=== PATIENT | male | born 2000 | race Hispanic/Latino ===

== ENCOUNTER 2019-04-01 20:16 | Emergency (ER) | payer BC ==
[~2019-04-01] VITALS: Ht 175.3 cm; Wt 83.9 kg
--- OUTSIDE RECORDS SUMMARY | ~2019-04-01 | XMS | Encounter Summary ---
Demographics + + + | Address | [address] | | | [place] [address] | + + + | Home Phone | | + + + | Preferred Language | Unknown | + + + | Marital Status | Single | + + + | Jehovah'S Witness Affiliation | 1041 | + + + | Race | Unknown | + + + | Ethnic Group | Unknown | + + + Author + + + | Author | [facility] | | | and [place]avier[place] | + + + | Organization | [facility] | | | and [place] | + + + | Address | Unknown | + + + | Phone | Unavailable | + + + Support + + + + + | Name | Relationship | Address | Phone | + + + + + | Martir Hurtado | ECON | [address] | | | | | [address], [place] | | | | | [address] | | + + + + + Care Team Providers + +------+ + | Care Journeyman Pressman Name | Role | Phone | + +------+ + | No, Physician | PCP | Unavailable | + +------+ + Reason for Visit Auth/Cert (Routine) +--------+--------+ + + + + | Status | Reason | Specialty | Diagnoses / | Referred By | Referred To | | | | | Procedures | Contact | Contact | +--------+--------+ + + + + | | | | Diagnoses | | | | | | | Other tear | | | | | | | of lateral | | | | | | | meniscus, | | | | | | | current | | | | | | | injury, | | | | | | | right knee, | | | | | | | initial | | | | | | | encounter | | | | | | | Procedures | | | | | | | [facility] ARTHRS | | | | | | | KNE SURG | | | | | | | W/MENISCECTO | | | | | | | MY MED/LAT | | | | | | | W/SHVG LA | | | | | | | KNEE | | | | | | | SCOPE,MED OR | | | | | | | LAT MENIS | | | | | | | REPAIR | | | +--------+--------+ + + + + Encounter Details +--------+---------+ + + + | Date | Type | Department | Care Team | Description | +--------+---------+ + + + | 09/08/ | Surgery | [facility] | Fabrizio Pina, | ARTHROSCOPY KNEE | | 2018 | | HOSPITAL OR INTRA OP | DO [address] , | with Lateral | | | | [address] | [place], [place] | Meniscus Repair vs | | | | [place], [place] | [address] | Partial Resection | | | | [id number] | [phone] | | | | | [phone] | | | +--------+---------+ + + + Social History + +-------+ +--------+------+ | Tobacco Use | Types | Packs/Day | Years | Date | | | | | Used | | + +-------+ +--------+------+ | Never Smoker | | | | | + +-------+ +--------+------+ + +---+---+---+ | Smokeless Tobacco: | | | | | Never Used | | | | + +---+---+---+ + + +---------+ + | Alcohol Use | Drinks/Week | oz/Week | Comments | + + +---------+ + | No | | | | + + +---------+ + + + + | Sex Assigned at | Date Recorded | | | | + + + | Not on file | | + + + + + + + | Job Start Date | Occupation | Industry | + + + + | Not on file | Not on file | Not on file | + + + + + + + + | Travel History | Travel Start | Travel End | + + + + + + | No recent travel history available. | + + documented as of this encounter Last Filed Vital Signs + + + + + | Vital Sign | Reading | Time Taken | Comments | + + + + + | Blood Pressure | 116/74 | 09/08/2017 10:30 AM | | | | | PDT | | + + + + + | Pulse | 70 | 09/08/2017 10:30 AM | | | | | PDT | | + + + + + | Temperature | 36.1 C (97 F) | 09/08/2017 9:32 AM | | | | | PDT | | + + + + + | Respiratory Rate | 16 | 09/08/2017 10:30 AM | | | | | PDT | | + + + + + | Oxygen Saturation | 99% | 09/08/2017 9:30 AM | | | | | PDT | | + + + + + | Inhaled Oxygen | - | - | | | Concentration | | | | + + + + + | Weight | - | - | | + + + + + | Height | - | - | | + + + + + | Body Mass Index | - | - | | + + + + + documented in this encounter Discharge Instructions Instructions Fabrizio Pina, DO - 09/08/2017Formatting of this note might be different f rom the original. Discharge Instructions for Knee Arthroscopy You had kneearthroscopy. This surgical procedure uses small incisions to locate, identify , and treat problems inside the knee. These problems include loose bodies, meniscal tears, b one spurs, osteochondritis dissecans (OCD), and synovitis. Below are tips to help speed your recovery from surgery. Activity Never drive while taking opioid pain medicine. Remember to take pain medicines as directed; don t wait for the pain to get bad. And d on't drink alcohol while taking pain medicines. Weight bearing as tolerated on the operative extremity. Use crutches as needed. Range of motion of the operative knee is encouraged. Unless your doctor tells you otherwise, begin using the affected knee as much as you can [id number] after surgery. Slowly bend and straighten your affected leg as far as you can, unless your doctor tells you otherwise. Do this several times a day. Rest your knee by lying down and putting pillows under it for the [id number] after s urgery. Keep your ankle elevated above the level of your heart. This helps keep swelling katty n. Make sure you work on straightening the knee periodically during these first few days po st surgery to avoid the development of a flexion contracture. Point and flex your foot, and rotate your ankle as much as possible during the first few weeks following surgery. Also, wiggle your toes as much as possible. Incision care Check your incision daily for redness, tenderness, or drainage starting post-op day #5. Don t be alarmed if there is some bruising, slight swelling of the knee, or a small am ount of blood on the bandage. Adjust the bandage or brace as needed. It should feel supportive on your knee, but not t oo tight. Don t soak your incision in water (no hot tubs, bathtubs, swimming pools) until your d octor says it s OK. Yyhb2nhz(s)after your surgery to begin showering. Then shower as needed. Leave cur rent dressing on until post-op day #3. On post-op day #3, may get incisions wet in shower an d then pat dry. Begin daily dressing changes on post-op day #3 using dry gauze and overwrap with an JOE bandage. Once your dressing is removed, follow your doctor s instructions for care of the wound . Use an ice pack, ICEMAN,or bag of frozen peas or something similar wrapped in a th in towel to reduce the swelling. Keep the foot elevated while you ice the knee. Apply the ic e pack [id number]; then remove it [id number]. Repeat as needed. Icing helps redu ce swelling. Other precautions Arrange your household to keep the items you need within reach. Remove throw rugs, electrical cords, and anything else that may cause you to fall. Use a cane, crutches, a walker, or handrails until your balance, flexibility, and streng th improve, and you can put weight on your leg. And remember to ask for help from others whe n you need it. Free up your hands so that you can use them to keep balance. Use a lizy pack, apron, or pockets to carry things. Follow-up Make a follow-up appointment as directed by your doctor. Typical follow up is usually 10-1 4 days post surgery. When to seek medical attention Call 911 right awayif you have any of the following: Chest pain Shortness of breath Severe nausea Otherwise, call your doctor immediately if you have any of the following: Pain that is not relieved by medicine or rest Continued bleeding through the bandage Tingling, numbness, or coldness in your foot or leg Fever demli893.4F(38.0C) or shaking chills Excessive swelling, increased redness, or any drainage around the incision Swelling, tenderness, or pain in your leg AttachmentsThe following attachments cannot be sent through Care Everywhere.Anesthesia: Gen fierro Anesthesia (Portuguese)documented in this encounter Medications at Time of Discharge + + + +---------+ + + | Medication | Sig | Dispensed | Refills | Start | End Date | | | | | | Date | | + + + +---------+ + + | ibuprofen | Take 1 tablet by | 60 | 3 | 09/09/19 | | | (ADVIL,MOTRIN) 600 | mouth every 6 hours | tablet | | 18 | 8 | | MG tablet | as needed for Pain. | | | | | + + + +---------+ + + | | Take 1-2 tablets by | 40 | 0 | 09/09/19 | | | oxyCODONE-acetaminop | mouth every 4 hours | tablet | | 18 | 8 | | hen (PERCOCET) 5-325 | as needed for Pain. | | | | | | mg per tablet | | | | | | + + + +---------+ + + documented as of this encounter Plan of Treatment Not on filedocumented as of this encounter Procedures + +--------+ + + + | Procedure Name | Priori | Date/Time | Associated Diagnosis | Comments | | | ty | | | | + +--------+ + + + | ARTHROSCOPY KNEE | | 09/08/2017 | Unknown | | | | | 7:45 AM | | | | | | PDT | | | + +--------+ + + + documented in this encounter Visit Diagnoses Not on filedocumented in this encounter Administered Medications + +--------+---------+------+------+------+ | Medication Order | MAR | Action | Dose | Rate | Site | | | Action | Date | | | | + +--------+---------+------+------+------+ + +---+ | benzocaine-menthol (CEPACOL) | | | lozenge 1 lozenge 1 lozenge, | | | Buccal, EVERY 2 HOURS PRN, Sore | | | Throat, Starting 6/6/18 at | | | 0922, Maxiumum 12 lozenges per 24 | | | hours., | | + +---+ | | | + +---+ | diphenhydrAMINE (BENADRYL) 12.5 | | | mg/5 mL liquid 25 mg 25 mg, | | | Oral, EVERY 4 HOURS PRN, Itching, | | | Starting Wed09/08/17 at 0918, | | | Oral route is preferred., | | | Post-op/Phase II | | + +---+ | | | + +---+ | diphenhydrAMINE (BENADRYL) | | | capsule 25 mg 25 mg, Oral, EVERY | | | 4 HOURS PRN, Itching, Starting | | | Wed09/08/17 at 0918, Oral route is | | | preferred., Post-op/Phase II | | + +---+ | | | + +---+ | diphenhydrAMINE (BENADRYL) | | | injection 12.5 mg 12.5 mg, | | | Intravenous, EVERY 4 HOURS PRN, | | | Itching, Starting Wed09/08/17 at | | | 0918, Oral route is preferred., | | | Post-op/Phase II | | + +---+ | | | + +---+ + +-------+ +------+---+ + | EPINEPHrine 1 mg/mL injection | Given | 09/09/19 | 3 mg | | Knee-Rig | | PRN, Starting Wed09/08/17 at 0830, | | 18 8:30 | | | ht | | Intra-op | | AM PDT | | | | + +-------+ +------+---+ + + +---+ | | | + +---+ | fentaNYL (PF) injection 25-50 | | | mcg 25-50 mcg, Intravenous, | | | EVERY 5 MIN PRN, Pain, Starting | | | Wed09/08/17 at 0845, Maximum total | | | dose 250 mcg. PACU IV Narcotic | | | Priority: Only use fentanyl for | | | immediate post-op pain (one dose) | | | or breakthrough pain when any | | | other IV narcotics ordered have | | | been ineffective (if ordered). | | | If both morphine and | | | hydromorphone are ordered, use | | | morphine first, and use | | | hydromorphone if morphine | | | ineffective., Recovery/Phase I | | + +---+ | | | + +---+ | HYDROmorphone (DILAUDID) | | | injection 0.2-0.5 mg 0.2-0.5 mg, | | | Intravenous, EVERY 5 MIN PRN, | | | Pain, Starting 09/08/17 at | | | 0845, Maximum total dose 4 mg. | | | PACU IV Narcotic Priority: Only | | | use fentanyl for immediate | | | post-op pain (one dose) or | | | breakthrough pain when any other | | | IV narcotics ordered have been | | | ineffective (if ordered). If | | | both morphine and hydromorphone | | | are ordered, use morphine first, | | | and use hydromorphone if morphine | | | ineffective., Recovery/Phase I | | + +---+ | | | + +---+ + +---------+ +--------+-------+---+ | lactated ringers (LR) infusion | New Bag | 09/09/19 | 1,000 | 100 | | | at 10-100 mL/hr, Intravenous, | | 18 7:27 | mLs | mL/hr | | | CONTINUOUS, Starting Wed09/08/17 | | AM PDT | | | | | at 0715, TKO., Pre-op | | | | | | + +---------+ +--------+-------+---+ + +---+ | | | + +---+ | meperidine (DEMEROL) injection | | | 12.5-25 mg 12.5-25 mg, | | | Intravenous, PRN, Shivering, | | | Starting Wed09/08/17 at 0845, For | | | 2 doses, May Repeat once in 5 | | | min., Recovery/Phase I | | + +---+ | | | + +---+ | ondansetron (ZOFRAN) injection | | | 4 mg 4 mg, Intravenous, ONCE | | | PRN, Nausea, Starting Wed09/08/17 | | | at 0845, For 1 dose, | | | Recovery/Phase I | | + +---+ | | | + +---+ + +-------+ +--------+---+ + | ropivacaine (NAROPIN) 5 mg/mL | Given | 09/09/19 | 30 mLs | | Surgical | | (0.5%) injection PRN, Starting | | 18 8:30 | | | Site | | 09/08/17 at 0830, Intra-op | | AM PDT | | | | + +-------+ +--------+---+ + +---+---+ | | | +---+---+ documented in this encounter"
--- OUTSIDE RECORDS SUMMARY | ~2019-04-01 | XMS | Encounter Summary ---
Demographics + + + | Address | [address] | | | [place] [address] | + + + | Home Phone | | + + + | Preferred Language | Unknown | + + + | Marital Status | Single | + + + | Jainism Affiliation | 1041 | + + + | Race | Unknown | + + + | Ethnic Group | Unknown | + + + Author + + + | Author | [facility] | | | and [place]avier[place] | + + + | Organization | [facility] | | | and [place] | + + + | Address | Unknown | + + + | Phone | Unavailable | + + + Support + + + + + | Name | Relationship | Address | Phone | + + + + + | Martir Hurtado | ECON | [address] | | | | | [address], [place] | | | | | [address] | | + + + + + Care Team Providers + +------+ + | Care Research Laboratory Manager Name | Role | Phone | + [...] | | | | | | | [place] [facility] | | | | | | | KNE SURG | | | | | | | W/MENISCECTO | | | | | | | MY MED/LAT | | | | | | | W/SHVG NC | | | | | | | KNEE | | | | | | | SCOPE,MED [place] | | | | | | | LAT MENIS | | | | | | | REPAIR | | | +--------+--------+ + + + + Encounter Details +--------+ + + + + | Date | Type | Department | Care Team | Description | +--------+ + + + + | 09/08/ | Anesthesia | [facility] | Ava Jensen | | | 2017 | Event | HOSPITAL OR INTRA OP | L, DO [address] | | | | | [address] [place] | [place], [place] | | | | | [place] | [address] | | | | | [address] | | | | | | [phone] | | | +--------+ + + + + Anesthesia Record + + + + + | Procedure Name | Responsible | Anesthesia Start | Anesthesia Stop Time | | | Anesthesiologist | Time | | + + + + + | ARTHROSCOPY KNEE | Ava Feliz Jensen, | 09/08/17 0748 | 09/08/17 0841 | | with Lateral | DO | | | | Meniscus Repair vs | | | | | Partial Resection | | | | | (Right Knee) | | | | + + + + + +----+---+ + + | Da | T | Event | Comment | | te | i | | | | | m | | | | | e | | | +----+---+ + + | 06 | 0 | | | | /0 | 7 | | | | 6/ | 3 | | | | 20 | 2 | | | | 18 | | | | +----+---+ + + | | 0 | An Checkout | Pre-use anesthesia machine/equipment checkout. | | | 7 | | | | | 4 | | | | | 8 | | | +----+---+ + + | | 0 | An Start | Reassessment prior to anesthesia induction/procedure. | | | 7 | | | | | 4 | | | | | 8 | | | +----+---+ + + | | 0 | Preoxygenat | | | | 7 | ed | | | | 5 | | | | | 1 | | | +----+---+ + + | | 0 | An | | | | 7 | Induction | | | | 5 | | | | | 4 | | | +----+---+ + + | | 0 | An | | | | 7 | Intubation | | | | 5 | | | | | 5 | | | +----+---+ + + | | 0 | First | | | | 8 | Inc/Proc St | | | | 1 | | | | | 2 | | | +----+---+ + + | | 0 | An Tourn | | | | 8 | Inflated | | | | 1 | | | | | 2 | | | +----+---+ + + | | 0 | An Tourn | | | | 8 | Deflated | | | | 2 | | | | | 9 | | | +----+---+ + + | | 0 | Breathing | | | | 8 | Spontaneous | | | | 3 | ly | | | | 8 | | | +----+---+ + + | | 0 | an stop | | | | 8 | data | | | | 3 | | | | | 8 | | | +----+---+ + + | | 0 | An Stop | Patient handed off to recovery nurse. | | | 4 | | | | | 1 | | | +----+---+ + + | | 0 | Quick Note | To PACU with LMA, will be removed by RN at appropriate time. | | | 8 | | | | | 4 | | | | | 2 | | | +----+---+ + + +------+ | Meds | +------+ + +---------+ | Name | Total | + +---------+ | lidocaine 2% | 100 mg | + +---------+ | fentaNYL | 250 mcg | + +---------+ | propofol | 200 mg | + +---------+ | dexamethasone 10 mg/mL | 8 mg | + +---------+ | ketorolac (30 mg/mL) | 30 mg | + +---------+ | midazolam 1 mg/mL (2 mL vial) | 2 mg | + +---------+ | ceFAZolin in dextrose (ANCEF) | 2 g | | IVPB 2 g | | + +---------+ | lactated ringers (LR) infusion | 200 mL | + +---------+ + + | Name | + + | N2O Flow Rate (L/Min) | + + | O2 Flow Rate (L/Min) | + + | Insp O2 | + + | Exp N2O | + + | Exp SEV | + + | Exp ISO | + + | Exp HANNA | + + | Air Flow Rate (L/Min) | + + + + | No blood administrations on file. | + + +--------+ + + + | Type | Details | Placement | Removal | +--------+ + + + | Periph | 09/08/17; 0725; Right; Hand; | 09/08/17 0725 by Rosette | 09/08/17 1006 by Rosette | | eral | [id number]-[id number] catheter system; | Kitty Mathis RN | Kitty Mathis RN | | IV | 20 gauge; 2; distraction, | | | | | tolerated well, appears | | | | | comfortable; no longer indicated; | | | | | short term use; 09/08/17; 1006 | | | | | (intact cath) | | | +--------+ + + + | Airway | Placement Date: 09/08/17; | 09/08/17 0755 by | 09/08/17 0855 by | | | Placement Time: 075 (created via | Ava Jensen, | Silverio Vidal RN | | | procedure documentation); Mask | DO | | | | Ventilation: EZ; Airway Type: | | | | | laryngeal mask; Size: 5; Trauma: | | | | | none; Placement Check: exhaled | | | | | CO2 detection device, bilateral | | | | | chest rise; Removal: removed by | | | | | MELY; Removal Date: 09/08/17; | | | | | Removal Time: 0855 | | | +--------+ + + + | Read | 09/08/17; 0831; Right; knee; | 09/08/17 0831 by | 06/28/18 1342 by | | only - | 06/28/18 (Completed/Removed by | Di Verma RN | User Epic | | | Utility); 1342 (Completed/Removed | | | | José Migueli | by Utility) | | | | on | | | | +--------+ + + + documented in this encounter Social History + +-------+ +--------+------+ | Tobacco [...] | + +--------+ + + + | ANE AIRWAY NOTE | Routin | 09/08/2017 | | Results for this | | | e | 7:59 AM | | procedure are in the | | | | PDT | | results section. | + +--------+ + + + documented in this encounter Results Anesthesia Airway Note (09/08/2017 7:59 AM PDT) + + + | Narrative | Performed At | + + + | Ava Jensen DO 09/08/2017 7:59 Anesthesia Airway | | | Placement 09/08/2017 7:55 Preprocedure check: patient identified, | | | airway assessed, suction, patient reassessment prior to induction, | | | oxygen and airway equipment checked Mask ventilation: easy Airway | | | type: laryngeal mask Size: 5 Cuffed: cuffed Route, reference point: | | | center of mouth Trauma: none Tube placement verification: bilateral | | | chest rise and carbon dioxide detection Performing provider: | | | AVA JENSEN Electronically Signed by: Ava Piper. | | | DO Emily ESig | | | date/time: 09/08/2017 7:59 | | + + + + + | Procedure Note | + + | Ava Jensen DO - 09/08/2017 7:59 AM PDT Anesthesia Airway Placement09/08/2017 | | 7:55Preprocedure check: patient identified, airway assessed, suction, patient | | reassessment prior to induction, oxygen and airway equipment checkedMask ventilation: | | easyAirway type: laryngeal maskSize: 5Cuffed: cuffedRoute, reference point: center of | | mouthTrauma: noneTube placement verification: bilateral chest rise and carbon dioxide | | detectionPerforming provider: AVA JENSEN LElectronically Signed by: Ava Pruitt | | DO Emily ESig date/time: 09/08/2017 7:59 | |Cuffed: cuffed | |Route, reference point: center of mouth | |Trauma: none | |Tube placement verification: bilateral chest rise and carbon dioxide detection | |Performing provider: AVA JENSEN | | | | | |Electronically Signed by: Ava Jensen DO [facility] date/time: 09/08/2017 7:59 | | | + + documented in this encounter Visit Diagnoses Not on filedocumented in this encounter Administered Medications + +--------+ +------+------+------+ | Medication Order | MAR | Action | Dose | Rate | Site | | | Action | Date | | | | + +--------+ +------+------+------+ | ceFAZolin in dextrose (ANCEF) | Given | 09/09/19 | 2 g | | | | IVPB 2 g 2 g, Intravenous, | | 18 7:41 | | | | | Administer over 30 Minutes, Prior | | AM PDT | | | | | to Incision, Starting Wed09/08/17 | | | | | | | at 0654, For 1 dose, Give within | | | | | | | one hour prior to incision., | | | | | | | Pre-op, Indications: Surgical | | | | | | | Prophylaxis | | | | | | + +--------+ +------+------+------+ +---+---+ | | | +---+---+ + +-------+ +------+---+---+ | dexamethasone (DECADRON) 10 | Given | 09/09/19 | 8 mg | | | | mg/mL injection Intravenous, | | 18 8:04 | | | | | PRN, Starting Wed09/08/17 at 0804, | | AM PDT | | | | | Anesthesia Intra-op | | | | | | + +-------+ +------+---+---+ +---+---+ | | | +---+---+ + +-------+ +--------+---+---+ | fentaNYL (PF) injection | Given | 09/09/19 | 50 mcg | | | | Intravenous, PRN, Pain, Starting | | 18 8:29 | | | | | 09/08/17 at 0751, Anesthesia | | AM PDT | | | | | Intra-op | | | | | | + +-------+ +--------+---+---+ +-------+ +---------+---+---+ | Given | 09/09/19 | 100 mcg | | | | | 18 8:12 | | | | | | AM PDT | | | | +-------+ +---------+---+---+ | Given | 09/09/19 | 100 mcg | | | | | 18 7:51 | | | | | | AM PDT | | | | +-------+ +---------+---+---+ +---+---+ | | | +---+---+ + +-------+ +-------+---+---+ | ketorolac (TORADOL) injection | Given | 09/09/19 | 30 mg | | | | Intravenous, PRN, Pain, Starting | | 18 8:29 | | | | | Wed09/08/17 at 0829, Anesthesia | | AM PDT | | | | | Intra-op | | | | | | + +-------+ +-------+---+---+ +---+---+ | | | +---+---+ + +-------+ +--------+---+---+ | lidocaine 2% injection Other, | Given | 09/09/19 | 100 mg | | | | PRN, Starting Wed09/08/17 at 0754, | | 18 7:54 | | | | | Anesthesia Intra-op | | AM PDT | | | | + +-------+ +--------+---+---+ +---+---+ | | | +---+---+ + +-------+ +------+---+---+ | midazolam (VERSED) 1 mg/mL | Given | 09/09/19 | 2 mg | | | | injection Intravenous, PRN, | | 18 7:49 | | | | | Anxiety, Starting Wed09/08/17 at | | AM PDT | | | | | 0749, Anesthesia Intra-op | | | | | | + +-------+ +------+---+---+ +---+---+ | | | +---+---+ + +-------+ +--------+---+---+ | propofol (DIPRIVAN) injection | Given | 09/09/19 | 200 mg | | | | Intravenous, PRN, Starting Wed | | 18 7:54 | | | | | 09/08/17 at 0754, Anesthesia | | AM PDT | | | | | Intra-op | | | | | | + +-------+ +--------+---+---+ +---+---+ | | | +---+---+ documented in this encounter"
--- OUTSIDE RECORDS SUMMARY | ~2019-04-01 | XMS | Encounter Summary ---
Demographics + + + | Address | [address] | | | [place] [address] | + + + | Home Phone | | + + + | Preferred Language | Unknown | + + + | Marital Status | Single | + + + | Anabaptist Affiliation | 1041 | + + + | Race | Unknown | + + + | Ethnic Group | Unknown | + + + Author + + + | Author | [facility] | | | and [place] | + + + | Organization | [facility] | | | and [place] | + + + | Address | Unknown | + + + | Phone | Unavailable | + + + Support + + + + + | Name | Relationship | Address | Phone | + + + + + | Martir Hurtado | ECON | [address] | | | | | [address], [place] | | | | | [address] | | + + + + + Care Team Providers + +------+ + | Care Game Design Instructor Name | Role | Phone | + [...] | | | | | | | [place] ARTH[facility] | | | | | | | KNE SURG | | | | | | | W/MENISCECTO | | | | | | | MY MED/LAT | | | | | | | W/SHVG [place] | | | | | | | [...] | | | | [place], [place] | [address] | Partial Resection | | | | [address] | [phone] | | | | | [phone] | | | +--------+---------+ + + + [...] affected knee as much as you can [id number] after surgery. Slowly bend and straighten your affected leg as far as you can, unless your doctor tells you otherwise. Do this several times a day. Rest your knee by lying down and putting pillows under it for the [id number] after s urgery. Keep your ankle elevated [...] your d octor says it s OK. Oxub6rda(s)after your surgery to begin showering. Then shower [...] the knee. Apply the ic e pack [id number]; then remove it [id number]. Repeat as needed. Icing helps redu ce [...] coldness in your foot or leg Fever emkgc279.4F(38.0C) or shaking chills Excessive swelling, increased redness, or any drainage around the incision Swelling, tenderness, or pain in your leg AttachmentsThe following attachments cannot be sent through Care Everywhere.Anesthesia: Gen fierro Anesthesia (Chilean)documented in this encounter Medications at Time of [...]
--- OUTSIDE RECORDS SUMMARY | ~2019-04-01 | XMS | Encounter Summary ---
Demographics + + + | Address | [address] | | | [place] [address] | + + + | Home Phone | | + + + | Preferred Language | Unknown | + + + | Marital Status | Single | + + + | Gnosticism Affiliation | 1041 | + + + | Race | Unknown | + + + | Ethnic Group | Unknown | + + + Author + + + | Author | [facility] | | | and [place]avier[place] | + + + | Organization | [facility] | | | and [place] | + + + | Address | Unknown | + + + | Phone | Unavailable | + + + Support + + + + + | Name | Relationship | Address | Phone | + + + + + | Martir Hurtado | ECON | [address] | | | | | [place] | | | | | [address] | | + + + + + Care Team Providers + +------+ + | Care Bumper Operator Name | Role | Phone | + +------+ + | No, Physician | PCP | Unavailable | + +------+ + Reason for Visit +--------+ + | Reason | Comments | +--------+ + | Other | Please advise | +--------+ + Encounter Details +--------+ + + + + | Date | Type | Department | Care Team | Description | +--------+ + + + + | 10/19/ | Telephone | [facility] | Fabrizio Pina, | Other (Please | | 2018 | | [facility] | [address] , | advise) | | | | [address] [place] | [place], [place] | | | | | [place], [place] | [address] | | | | | [address] | [phone] | | | | | [phone] | | | +--------+ + + + + Social History + +-------+ [...] Not on filedocumented as of this encounter Visit Diagnoses Not on filedocumented in this encounter"
--- OUTSIDE RECORDS SUMMARY | ~2019-04-01 | XMS | Encounter Summary ---
Demographics + + + | Address | [address] | | | [place] [address] | + + + | Home Phone | | + + + | Preferred Language | Unknown | + + + | Marital Status | Single | + + + | Jewish Affiliation | 1041 | + + + | Race | Unknown | + + + | Ethnic Group | Unknown | + + + Author + + + | Author | [facility] | | | and [place]avier[place] | + + + | Organization | [facility] | | | and [place] | + + + | Address | Unknown | + + + | Phone | Unavailable | + + + Support + + + + + | Name | Relationship | Address | Phone | + + + + + | Martir Hurtado | ECON | [address] | | | | | [place] | | | | | [address] | | + + + + + Care Team Providers + +------+ + | Care Architectural Modeler Name | Role | Phone | + +------+ + | No, Physician | PCP | Unavailable | + +------+ + Reason for Visit +--------+ + | Reason | Comments | +--------+ + | Other | Fluid in R Knee | +--------+ + Encounter Details +--------+ + + + + | Date | Type | Department | Care Team | Description | +--------+ + + + + | 09/22/ | Telephone | [facility] | Fabrizio Pina, | Other (Fluid in R | | 2018 | | [facility] | [address] , | Knee ) | | | | [address] | [place], [place] | | | | | [place], [place] | [address] | | | | | [address] | [phone] | | | | | [phone] | | | +--------+ + + + [...]
--- OUTSIDE RECORDS SUMMARY | ~2019-04-01 | XMS | Encounter Summary ---
Demographics + + + | Address | [address] | | | [place] [address] | + + + | Home Phone | | + + + | Preferred Language | Unknown | + + + | Marital Status | Single | + + + | Religion Affiliation | 1041 | + + + | Race | Unknown | + + + | Ethnic Group | Unknown | + + + Author + + + | Author | [facility] | | | and [place] | + + + | Organization | [facility] | | | and [place] | + + + | Address | Unknown | + + + | Phone | Unavailable | + + + Support + + + + + | Name | Relationship | Address | Phone | + + + + + | aMrtir Hurtado | ECON | [address] | | | | | [place] | | | | | [address] | | + + + + + Care Team Providers + +------+ + | Care Manager Of Corporate Communications Name | Role | Phone | + +------+ + | No, Physician | PCP | Unavailable | + +------+ + Reason for Visit +--------+ + | Reason | Comments | +--------+ + | Other | RX Request | +--------+ + Encounter Details +--------+ + + + + | Date | Type | Department | Care Team | Description | +--------+ + + + + | 09/09/ | Telephone | [facility] | Fabrizio Pina, | Other (RX Request ) | | 2017 | | [facility] | [address] , | | | | | [address] [place] | [place], [place] | | | | | [place], [place] | [address] | | | | | [address] | [phone] | | | | | [phone] | | | +--------+ + + + [...]
--- OUTSIDE RECORDS SUMMARY | ~2019-04-01 | XMS | Encounter Summary ---
Demographics + + + | Address | [address] | | | [place] [address] | + + + | Home Phone | | + + + | Preferred Language | Unknown | + + + | Marital Status | Single | + + + | Restorationism Affiliation | 1041 | + + + | Race | Unknown | + + + | Ethnic Group | Unknown | + + + Author + + + | Author | [facility] | | | and [place] | + + + | Organization | [facility] | | | and [place] | + + + | Address | Unknown | + + + | Phone | Unavailable | + + + Support + + + + + | Name | Relationship | Address | Phone | + + + + + | Martir Hurtado | ECON | [address] | | | | | [place] | | | | | [address] | | + + + + + Care Team Providers + +------+ + | Care Keyboard Specialist Name | Role | Phone | + +------+ + | No, Physician | PCP | Unavailable | + +------+ + Reason for Visit +--------+ + | Reason | Comments | +--------+ + | Other | | +--------+ + Encounter Details +--------+ + + + + | Date | Type | Department | Care Team | Description | +--------+ + + + + | 01/31/ | Telephone | [facility] | Fabrizio Pina, | Other | | 2017 | | [facility] | [address] , | | | | | [address] [address] | [place], [place] | | | | | [place], [place] | [address] | | | | | [address] | [phone] | | | | | [phone] | | | +--------+ + + + [...]
--- OUTSIDE RECORDS SUMMARY | ~2019-04-01 | XMS | Encounter Summary ---
Demographics + + + | Address | [address] | | | [place] [address] | + + + | Home Phone | | + + + | Preferred Language | Unknown | + + + | Marital Status | Single | + + + | Jewish Affiliation | [id number] | + + + | Race | Unknown | + + + | Ethnic Group | Unknown | + + + Author + + + | Author | [facility] | | | and Javierana | + + + | Organization | [facility] | | | and Javierana | + + + | Address | Unknown | + + + | Phone | Unavailable | + + + Support + + + + + | Name | Relationship | Address | Phone | + + + + + | Martir Hurtado | ECON | [address] | | | | | [address], [place] | | | | | [address] | | + + + + + Care Team Providers + +------+ + | Care Transmitter Engineer In Charge Name | Role | Phone | + +------+ + | No, Physician | PCP | Unavailable | + +------+ + Reason for Referral Diagnostic/Screening (Emergency) +--------+--------+ + + + + | Status | Reason | Specialty | Diagnoses / | Referred By | Referred To | | | | | Procedures | Contact | Contact | +--------+--------+ + + + + | Closed | | Radiology | Diagnoses | Brandan Riley | Cc Wgr Xray | | | | | Pain of | C, [employer]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 [address] | | | | | right knee | [address] , | [address] | | | | | after injury | [place] | [place], [place] | | | | | Procedures | [place], [place] | [address] | | | | | MRI Knee | [address] | Phone: | | | | | Right wo | Phone: | [phone] | | | | | Contrast | [phone] | Fax: | | | | | | Fax: | [phone] | | | | | | [phone] | | +--------+--------+ + + + + Reason for Visit + + + | Reason | Comments | + + + | Knee Pain | 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 (DOI 07/28/17) | + + + Encounter Details +--------+---------+ + + + | Date | Type | Department | Care Team | Description | +--------+---------+ + + + | 08/04/ | Office | [place] [facility] | Brandan Riley FNP | Pain of right knee | | 2018 | Visit | [facility] | [address] [place] | after injury | | | | [address] [address] | [place], [place] | | | | | [place], [place] | [address] | | | | | [address] | [phone] | | | | | [phone] | | | +--------+---------+ + + + [...] + + + | Blood Pressure | 137/75 | 08/04/2017 3:24 PM | | | | | PDT | | + + + + + | Pulse | 57 | 08/04/2017 3:24 PM | | | | | PDT | | + + + + + | Temperature | - | - | | + + + + + | Respiratory Rate | - | - | | + + + + + | Oxygen Saturation | 100% | 08/04/2017 3:24 PM | | | | | PDT | | + + + + + | Inhaled Oxygen | - | - | | | Concentration | | | | + + + + + | Weight | 83.9 kg (185 lb) | 08/04/2017 3:24 PM | | | | | PDT | | + + + + + | Height | 172.7 cm (5' 8") | 08/04/2017 3:24 PM | | | | | PDT | | + + + + + | Body Mass Index | 28.13 | 08/04/2017 3:24 PM | | | | | PDT | | + + + + + documented in this encounter Patient Instructions Patient Instructions Brandan Riley, MARIS - 08/04/2017 3:23 PM PDTFormatting of this note gael ht be different from the original. How Your Knee Works A healthy knee bends easily and rotates slightly. The joint absorbs stress and moves smooth ly. This allows you to walk, squat, and turn without pain. A healthy knee The knee is a hinge joint, formed where the thighbone (femur) and the shinbone (tibia) meet . It is the largest joint in the body. The joint is covered with smooth tissue and powered b y large muscles. When all the parts listed below are healthy, a knee should move easily: Cartilage is a layer of smooth tissue. It covers the ends of the thighbone and shinbone. It also lines the back side of the kneecap. Healthy cartilage absorbs stress and allows the knee to bend easily. Muscles power the knee and leg for movement. Tendons attach the muscles to the bones. Ligaments are bands of tissue that connect bones and brace the joint. Bones that make up your knee joint include your thighbone (femur), shinbone (tibia), and kneecap (patella). Menisci are 2 wedge shaped pieces of cartilage that absorb shock between the thighbone a nd shinbone. Date Last Reviewed: 12/23/201419993592-6634 [employer]. [address] [place] [address], [place] [address]. All righ ts reserved. This information is not intended as a substitute for professional medical care. Always follow your healthcare professional's instructions. Knee Pain with Possible Torn Meniscus Themeniscusis a tough cartilage pad that cushions the inside of the knee joint. It help s absorb the shock from movement. It also spreads the weight of your body evenly across the knee joint. This prevents excess wear and tear to the bones of that joint. The most common causes of meniscal tears are injuries, especially related to sports and deg enerative disease that happens with aging. A meniscus tear commonly happens during a twisting injury when the knee is bent. This cause s pain, swelling, reduced movement of the knee, and trouble walking. There may be popping, c licking, joint locking or inability to completely straighten the knee. Ligaments of the knee may also be injured. A torn meniscus is diagnosed by physical exam and X-rays. In the case of a severe injury, t he knee may be too painful to examine fully. A more accurate exam can be done after the init ial swelling goes down. An MRI may be ordered to make a final diagnosis. If your healthcare provider suspects a meniscal injury, you will treat your knee with ice a nd rest and preventing movement of the knee. A splint orknee brace that keeps your leg str aightmay be put on to protect the joint. Depending on the severity of the injury, surgery may be needed. A cartilage injury may take 4-12 weeks to heal depending on how bad it is. Home care Stay off the injured leg as much as possible until you can walk on it without pain. If y ou have a lot of pain when walking, crutches or a walker may be prescribed. (These can be re nted or bought at many pharmacies and surgical or orthopedic supply stores). Follow your [facility] provider's advice about when to begin putting weight on that leg. Keep your leg elevated to reduce pain and swelling. When sleeping, place a pillow under the injured leg. When sitting, support the injured leg so it is level with your waist. This is very important during the first 48 hours. Apply an ice pack over the injured area for 15 to 20 minutes every3 to 6hours. You s hould do this forthe first24 to 48 hours.You can make an ice pack by filling a plastic bag that seals at the top with ice cubes and then wrapping it with a thin towel. Continue t o use ice packs for relief of pain and swelling as needed. As the ice melts, be careful to a void getting your wrap, splint, or cast wet. After 48 hours, apply heat(warm shower orwa rm bath)for 15 to 20 minutes several times a day, or alternate ice and heat.You can plac e the ice pack directly over the splint. If you have to wear a pgio-mii-ybgvprnt brace, yo u can open it to apply the ice pack, or heat, directly to the knee. Never put ice directly o n the skin. Always wrap the ice in a towel or other type of cloth. You may xttxiyv-ghx-aiwyoco pain medicineto control pain, unless another pain medici ne was prescribed.If you have chronic liver or kidney disease or ever had a stomach ulcer, talk with your healthcare providerbeforeusing these medicines. If you were given a splint, keep it dry at all times. Bathe with your splint out of the water. Protect it with a large plastic bag that is rubber-banded at the top end. If a fiberg lass splint gets wet, you can dry it with a department chair. If you have bdnty-myq-ipjaawxm b race, you can remove this to bathe, unless told otherwise. Check with your healthcare provider before returning to sports or full work duties. Follow-up care Follow up with your healthcare provider, or as advised. This is usually within 1 to 2 weeks . Further testing may be required to check the extent of your injury. If X-rays were taken,you will betoldof any new findings that may affect your care. Call 911 Call 911 if you have: Shortness of breath Chest pain When to seek medical advice Call your healthcare provider right away if any of these occur: Toes or foot gets swollen, cold, blue, numb, or tingly Pain or swelling spreads over the knee or calf Warmth or redness appears over the knee or calf Fever of 100.4F (38C) or higher, or as directed by your healthcare provider Date Last Reviewed: 02/25/201519992932-3005 [employer]. [address] [place] [address], [place] [address]. All righ ts reserved. This information is not intended as a substitute for professional medical care. Always follow your healthcare professional's instructions. Knee Sprain of the Collateral Ligaments The knee is a hinge joint supported by four strong ligaments. The two ligaments inside the knee protect this joint from excess forward and backward movement. The ligaments on the outs ryan of the joint prevent agfk-gm-ksnz motion. These are called the collateral ligaments. The medial collateral ligament is located on the inner side of the joint; and the lateral c ollateral ligament is on the outer side of the joint. You have sprained one or both collateral ligaments. A sprain is a tearing of a ligament. Th e tear may be partial or complete. Diagnosis is made by physical exam. In the case of an acu te injury, the knee may be too swollen or painful to examine fully. A more accurate exam can be done after the initial swelling goes down. Symptoms of a knee sprain include immediate knee swelling, pain, and difficulty walking.I nitial treatment includes rest, splinting the knee to reduce movement of the joint, and icin g the knee to reduce swelling and pain.You may gzgijur-irr-qxkfiht pain medicineto con trol pain, unless another medicine was prescribed.Most sprains will heal in3 to 6weeks .A severe injury can take 3 to 4 months to heal. You will also need rehab exercises. Surge ry is usually not required for sprains involving only the collateral ligaments. Home care Stay off the injured leg as much as possible until you can walk on it without pain. If y ou have a lot of pain while walking, crutches, or a walker may be prescribed. These can be r ented or purchased at many pharmacies and surgical or orthopedic supply stores. Follow your healthcare provider s advice about when to begin bearing weight on that leg. If you were given a pqfr-wks-bsck closure knee brace, you can remove it to bathe. But le ave it in place when walking, sitting, or lying down unless told otherwise. Apply an ice pack over the injured area for 15 to 20 minutes every3 to 6hours. You s hould do this forthe first24 to 48 hours.You can make an ice pack by filling a plastic bag that seals at the top with ice cubes and then wrapping it with a thin towel.Continue to use ice packs for relief of pain and swelling as needed. As the ice melts, be careful to avoid getting your wrap, splint, or cast wet. After 48 hours, apply heat(warm shower orw arm bath)for 15 to 20 minutes several times a day, or alternate ice and heat.You can shawn ce the ice pack directly over the splint. If you have to wear a azpo-ter-cdnuokth brace, y ou can open it to apply the ice pack, or heat, directly to the knee. Never put ice directly on the skin. Always wrap the ice in a towel or other type of cloth. You may gdvulsr-qwp-xegjuid pain medicineto control pain, unless another pain medici ne was prescribed.Anti-inflammatory pain medicines, such as ibuprofen or naproxen may be m ore effective than acetaminophen.If you have chronic liver or kidney disease or ever had a stomach ulcer or GI bleeding, talk with your healthcare provider beforeusing these medici lety. Follow-up care Follow up with your healthcare provider as advised. Any X-rays you had today don t show a ny broken bones, breaks, or fractures. Sometimes fractures don t show up on the first X-ra y. Bruises and sprains can sometimes hurt as much as a fracture. These injuries can take roger e to heal completely. If your symptoms don t improve or they get worse, talk with your [facility] provider. You may need a repeat X-ray.If X-rays were taken, you will be told of an y new findings that may affect your care. Call 911 Call 911 if you have: Shortness of breath Chest pain When to seek medical advice Call your healthcare provider right awayif any of these occur: Pain or swelling increases Swelling, redness, or pain in the calf or thigh Date Last Reviewed: 02/22/201519992354-5693 [employer]. [address] [place] [address], [place] [address]. All righ ts reserved. This information is not intended as a substitute for professional medical care. Always follow your healthcare professional's instructions. Magnetic Resonance Imaging (MRI) You will be asked to hold very still during the scan. Magnetic resonance imaging (MRI) is a test that lets your doctor see detailed pictures of t he inside of your body. MRI combines the use of strong magnets and radio waves to form an MR I image. How do I get ready for an MRI? Follow any directions you are given for not eating or drinking before the test. Ask your provider if you should stop taking any medicine before the test. Follow your normal daily routine unless your provider tells you otherwise. You'll be asked to remove your watch, jewelry, hearing aids, credit cards, pens, pocket knives, eyeglasses, and other metal objects. You may be asked to remove your makeup. Makeup may contain some metal. Most MRI tests take 30 to 60minutes. Depending on the type of MRI you are having, the test may take longer. Give yourself extra time to check in. MRI uses strong magnets. Metal is affected by magnets and can distort the image. The magnet used in MRI can cause metal objects in your body to move. If you have a metal implant, you may not be able to have an MRI unless the implant is certified as MRI safe. People with thes e implants should not have an MRI: Ear (cochlear) implants Certain clips used for brain aneurysms Certain metal coils put in blood vessels Most defibrillators Most pacemakers Be sure to tell the radiologist or technologist if you: Havehad any previous surgeries Have a pacemaker, surgical clips, metal plate or pins, an artificial joint, franco or s crews, ear (cochlear) implants, or other implants Wear a medicated adhesive patch Have metal splinters in your body Have implanted nerve stimulators or drug-infusion ports Have tattoos or body piercings. Some tattoo inks contain metal. Work with metal Have braces. You must remove any dental work. Have a bullet or other metal in your body Also tell the radiologist or technologist if you: Are or think you may be Are afraid of small, enclosed spaces (claustrophobic) Are allergic to X-ray dye (contrast medium), iodine, shellfish, or any medicines Have other allergies Are Have a history of cancer Have any serious health problems. This includes kidney disease or a liver transplant. Yo u may not be able to have the contrast material used for MRI. What happens during an MRI? You may be asked to wear a hospital gown. You may be given earplugs to wear if you need them. You may be injected with a special dye (contrast) that improves the MRI image. You ll lie down on a platform that slides into the magnet. What happens after an MRI? You can get back to normal activities right away. If you were given contrast, it will pa ss naturally through your body within a day. You may be told to drink more water or other fl uids during this time. Your doctor will discuss the test results with you during a follow-up appointment or ove r the phone. Your next appointment is: Date Last Reviewed: 09/03/201619995941-7304 [employer]. [address] [place], [place] [id number]. All righ ts reserved. This information is not intended as a substitute for professional medical care. Always follow your healthcare professional's instructions. documented in this encounter Progress Notes Brandan Riley FNP - 08/04/2017 3:00 PM PDT Orthopedic Clinic Note Patient Name: Parish Hurtado | Age: 17 y.o. 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 The pain is significantly worsened by weightbearing especially when the leg is completely straight. He rates the pain a 5 out of 10 and it riley s travel through the entire knee sometimes to the back of the knee though the initial injury produced pain in the front of the knee. Review of Pertinent Systems Patient denies any visit problem associated neurologic and vascular system symptoms of numb ness, tingling or weakness during this history today. Medications No current outpatient prescriptions on file prior to visit. No current facility-administered medications on file prior to visit. Allergies Patient has no known allergies. Vitals BP 137/75 | Pulse 57 | Resp Temp | Wt 83.9 kg (185 lb) | BMI Body mass index is 28.13 kg/m. Imaging/Labs/Special Study Results Visit problem associated images and findings reviewed by me today with the patient include: X-ray: 4 view right knee: No evidence of acute processes. Bone density is age-appropriate. Normal knee study. Physical Exam Ortho Knee PE General: Patient is a healthy appearing young adult male who is alert and oriented and in no distres s. Inspection: Normal contour of the entire aspect of the knee. Skin: Normal skin over entire aspect of the knee ROM: AROM 150* flexion / 0* extension with pain on full extension over pressure at the anterior joint line PROM: 150* flexion / 0* extension with pain on full extension over pressure at the anterior joint line Pain: Mild TTP anterior joint line Stability: Knee is stable to varus/valgus stress Tests: Allowing the knee to drop and stop into full extension passively with gravity reproduces th e chief complaint Dane's test is positive for guarding Neurologic: 5/5 strength to all muscles Normal sensation to all nerves in the knee Vascular: 2+ pulses dorsalis pedis and posterior tibial arteries Assessment Parish was seen today for knee pain. Diagnoses and all orders for this visit: Pain of right knee after injury - XR Knee Right 4 + Vw; Future - MRI Knee Right wo Contrast; Future Plan of Care PLAN: Restrictions: General: Weight bearing activity as tolerated with no manual labor, no heavy lifting Medication: NSAIDS PRN Pain Medication PRN Therapy: Home RICE (Rest, Ice, Compression, & Elevation) therapy 3 times a day or more PRN Test/Imaging MRI of right knee Patient advised of their right to have diagnostic testing, health care treatment and/or ser vices at a facility other than [facility]. Follow-up Return for MRI follow-up by calling to schedule appt with me. Active Problems, Medical and Surgical Histories Patient Active Problem List Diagnosis Pain of right knee after injury History reviewed. No pertinent past medical history. Past Surgical History: Procedure Laterality Date KNEE SURGERY Right Family History Problem Relation Age of Onset Family history unknown: Yes Social History Social History Marital status: Single Spouse name: N/A Number of children: N/A Years of education: N/A Social History Main Topics Smoking status: Never Smoker Smokeless tobacco: Never Used Alcohol use No Drug use: No Sexual activity: Not Asked Other Topics Concern None Social History Narrative None I attest to the fact that I have reviewed the patient's medical, surgical, family and socia l histories, medications, allergies, and their vital signs recorded by my dyer assistant today, jett landeros found in this chart note. Electronically signed by: SUSANNAH Raines 08/04/2017 at 15:32 Note: Part of this report was transcribed using voice recognition software. Every effort wa s made to ensure accuracy. However, inadvertent computerized china painter errors may be pre sent. CC: No Physician on file -Thank you for choosing our clinic for your orthopedic care today- documented in this encounter Plan of Treatment Not on filedocumented as of this encounter Results MRI Knee Right wo Contrast (08/06/2017 6:56 PM PDT) + + | Specimen | + + | | + + + + + | Impressions | Performed At | + + + | IMPRESSION: 1. Partial-thickness tear of the anterior cruciate | [facility] | | ligament. 2. Anterior horn root tear of the lateral meniscus. | | | Dictated by: Mikhail Whitehead | | + + + + + + | Narrative | Performed At | + + + | EXAMINATION: MRI KNEE RIGHT WO CONTRAST HISTORY: Kicker with | [facility] | | football injury to his kicking leg resulting in painful swelling most | | | intense at the anterior joint line intractable with conservative | | | measures-positive Dane's test, positive anterior meniscus test | | | COMPARISON STUDY: None TECHNIQUE: Multiplanar multi sequence MRI | | | of the knee was performed without contrast FINDINGS: The lateral | | | menisci anterior horn root has a tear. The medial menisci is | | | intact . The anterior cruciate ligament has some intact fibers. | | | Overall the ligament is isointense suggesting a partial-thickness | | | injury The posterior cruciate ligament is intact . The medial | | | collateral ligament is intact . The lateral collateral ligament | | | complex, including the tendon of the long head of the biceps femoris, | | | the fibular collateral ligament, and the popliteus tendon is intact. | | | Moderate joint effusion. The extensor mechanism, including the | | | quadriceps and patellar tendon is intact. Minimal prepatellar bursal | | | fluid. The medial and lateral patellar retinacula are intact . | | | The cartilage within the patellofemoral compartment is intact. | | | The cartilage within the medial compartment is normal. The | | | cartilage in the lateral compartment is normal . Evaluation of the | | | osseous structures demonstrates no focal abnormality. Evaluation | | | of the soft tissues demonstrates no focal abnormality . | | + + + + + | Procedure Note | + + | Bandar, Rad Results In - 08/08/2017 7:36 AM PDT EXAMINATION:MRI KNEE RIGHT WO | | CONTRASTHISTORY:Kicker with football injury to his kicking leg resulting in painful | | swelling most intense at the anterior joint line intractable with conservative | | measures-positive Dane's test, positive anterior meniscus testCOMPARISON | | STUDY:NoneTECHNIQUE:Multiplanar multi sequence MRI of the knee was performed without | | contrastFINDINGS:The lateral menisci anterior horn root has a tear.The medial menisci is | | intact .The anterior cruciate ligament has some intact fibers. Overall the ligament is | | isointense suggesting a partial-thickness injuryThe posterior cruciate ligament is | | intact .The medial collateral ligament is intact .The lateral collateral ligament | | complex, including the tendon of the long head of the biceps femoris, the fibular | | collateral ligament, and the popliteus tendon is intact.Moderate joint effusion.The | | extensor mechanism, including the quadriceps and patellar tendon is intact. Minimal | | prepatellar bursal fluid.The medial and lateral patellar retinacula are intact .The | | cartilage within the patellofemoral compartment is intact.The cartilage within the | | medial compartment is normal.The cartilage in the lateral compartment is normal | | .Evaluation of the osseous structures demonstrates no focal abnormality.Evaluation of | | the soft tissues demonstrates no focal abnormality .IMPRESSION: IMPRESSION:1. | | Partial-thickness tear of the anterior cruciate ligament.2. Anterior horn root tear of | | the lateral meniscus.Dictated by: Mikhail Oneillam | | | |The medial collateral ligament is intact . | | | |The lateral collateral ligament complex, including the tendon of the long head of the bicep s femoris, the fibular collateral ligament, and the popliteus tendon is intact. | | | |Moderate joint effusion. | | | |The extensor mechanism, including the quadriceps and patellar tendon is intact. Minimal pre patellar bursal fluid. | | | |The medial and lateral patellar retinacula are intact . | | | |The cartilage within the patellofemoral compartment is intact. | | | |The cartilage within the medial compartment is normal. | | | |The cartilage in the lateral compartment is normal . | | | |Evaluation of the osseous structures demonstrates no focal abnormality. | | | |Evaluation of the soft tissues demonstrates no focal abnormality . | | | |IMPRESSION: | |IMPRESSION: | |1. Partial-thickness tear of the anterior cruciate ligament. | |2. Anterior horn root tear of the lateral meniscus. | | | |Dictated by: Mikhail Whitehead | | | | | + + + +---------+ + + | Performing | Address | City/State/Zipcode | Phone Number | | Organization | | | | + +---------+ + + | [facility] | | | | + +---------+ + + XR Knee Right 4 + Vw (08/04/2017 3:20 PM PDT) + + | Specimen | + + | | + + + + + | Impressions | Performed At | + + + | IMPRESSION: No acute process. Dictated by: Mikhail Whitehead | [facility] | | | | + + + + + + | Narrative | Performed At | + + + | EXAMINATION: XR KNEE RIGHT 4 + VW HISTORY: Right knee injury | [facility] | | pain COMPARISON STUDY: None FINDINGS: Films in multiple | | | projections show no evidence of an acute fracture. No | | | subluxation. No dislocation. Age appropriate bone mineral | | | density. | | + + + + + | Procedure Note | + + | Bandar, Rad Results In - 08/04/2017 4:21 PM PDT EXAMINATION:XR KNEE RIGHT 4 + | | VWHISTORY:Right knee injury painCOMPARISON STUDY:NoneFINDINGS:Films in multiple | | projections show no evidence of an acute fracture. No subluxation. No dislocation. | | Age appropriate bone mineral density.IMPRESSION: IMPRESSION:No acute process.Dictated | | by: Mikhail Oneillam | | | |COMPARISON STUDY: | |None | | | |FINDINGS: | |Films in multiple projections show no evidence of an acute fracture. No subluxation. No dislocation. Age appropriate bone mineral density. | | | |IMPRESSION: | |IMPRESSION: | |No acute process. | | | |Dictated by: Mikhail Whitehead | | | | | + + + +---------+ + + | Performing | Address | City/State/Zipcode | Phone Number | | Organization | | | | + +---------+ + + | [facility] | | | | + +---------+ + + documented in this encounter Visit Diagnoses + + | Diagnosis | + + | Pain of right knee after injury | + + documented in this encounter
--- OUTSIDE RECORDS SUMMARY | ~2019-04-01 | XMS | Encounter Summary ---
Demographics + + + | Address | [address] | | | [place] [address] | + + + | Home Phone | | + + + | Preferred Language | Unknown | + + + | Marital Status | Single | + + + | Mu-Ism Affiliation | 1041 | + + + | Race | Unknown | + + + | Ethnic Group | Unknown | + + + Author + + + | Author | [facility] | | | and Javierana | + + + | Organization | [facility] | | | and Javierana | + + + | Address | Unknown | + + + | Phone | Unavailable | + + + Support + + + + + | Name | Relationship | Address | Phone | + + + + + | Martir Hurtado | ECON | [address] | | | | | [facility], [place] | | | | | [address] | | + + + + + Care Team Providers + +------+ + | Care Imaging Account Manager Name | Role | Phone | [...] | | | | | | | DE ARTHRS | | | | | | | KNE SURG | | | | | | | W/MENISCECTO | | | | | | | MY MED/LAT | | | | | | | W/SHVG DE | | | | | | | [...] + + + + | 09/08/ | Hospital | [facility] | Fabrizio Pina, | | | 2018 | Encounter | HOSPITAL OR INTRA OP | DO [address] , | | | | | [address] | [place], [place] | | | | | [place], [place] | [address] | | | | | [address] | [phone] | | | | | [phone] | | | +--------+ + + + [...] affected knee as much as you can [id number] after surgery. Slowly bend and straighten your affected leg as far as you can, unless your doctor tells you otherwise. Do this several times a day. Rest your knee by lying down and putting pillows under it for the [id number] after s urgery. Keep your ankle elevated [...] your d octor says it s OK. Ltix5ycd(s)after your surgery to begin showering. Then shower [...] the knee. Apply the ic e pack [id number]; then remove it [id number]. Repeat as needed. Icing helps redu ce [...] coldness in your foot or leg Fever .4F(38.0C) or shaking chills Excessive swelling, increased redness, or any drainage around the incision Swelling, tenderness, or pain in your leg AttachmentsThe following attachments cannot be sent through Care Everywhere.Anesthesia: Gen fierro Anesthesia (Slovak)documented in this encounter Medications at Time of [...] PRN, Sore | | | Throat, Starting 09/08/17 at | | | 0922, Maxiumum 12 lozenges per 24 | | | hours., | | + +---+ | | | + +---+ | diphenhydrAMINE (BENADRYL) 12.5 | | | mg/5 mL liquid 25 mg 25 mg, | | | Oral, EVERY 4 HOURS PRN, Itching, | | | Starting 09/08/17 at 0918, | | | Oral route is preferred., | | | Post-op/Phase II | | + +---+ | | | + +---+ | diphenhydrAMINE (BENADRYL) | | | capsule 25 mg 25 mg, Oral, EVERY | | | 4 HOURS PRN, Itching, Starting | | | 09/08/17 at 0918, Oral route is | | [...] MIN PRN, | | | Pain, Starting Wed09/08/17 at | | | 0845, Maximum total [...] | mL/hr | | | CONTINUOUS, Starting 09/08/17 | | AM PDT | | | [...] ONCE | | | PRN, Nausea, Starting 09/08/17 | | | at 0845, For 1 dose, | | | Recovery/Phase I | | + +---+ | | | + +---+ documented in this encounter"
--- OUTSIDE RECORDS SUMMARY | ~2019-04-01 | XMS | Encounter Summary ---
Demographics + + + | Address | [address] | | | [place] [address] | + + + | Home Phone | | + + + | Preferred Language | Unknown | + + + | Marital Status | Single | + + + | Shinto Affiliation | 1041 | + + + | Race | Unknown | + + + | Ethnic Group | Unknown | + + + Author + + + | Author | [facility] | | | and Javierana | + + + | Organization | [facility] | | | and Javierana | + + + | Address | Unknown | + + + | Phone | Unavailable | + + + Support + + + + + | Name | Relationship | Address | Phone | + + + + + | Martir Hurtado | ECON | [address] | | | | | [address], [place] | | | | | [address] | | + + + + + Care Team Providers + +------+ + | Care Nail Expert Name | Role | Phone | + [...] | | | | | | | AL ARTHRS | | | | | | | KNE SURG | | | | | | | W/MENISCECTO | | | | | | | MY MED/LAT | | | | | | | W/SHVG AL | | | | | | | [...] | [address] | | | | | [address] | | | | | | [phone] | | | +--------+ + + + [...] 0725 by Rosette | 09/08/17 1006 by Roestte | | eral | [id number] catheter system; | Kitty Mathis RN | [...]
--- OUTSIDE RECORDS SUMMARY | ~2019-04-01 | XMS | Encounter Summary ---
Demographics + + + | Address | [address] | | | [place] [address] | + + + | Home Phone | | + + + | Preferred Language | Unknown | + + + | Marital Status | Single | + + + | Amish Affiliation | 1041 | + + + | Race | Unknown | + + + | Ethnic Group | Unknown | + + + Author + + + | Author | [facility] | | | and Javierana | + + + | Organization | [facility] | | | and Javierana [...] [place] | | | | | [address] | | + + + + + Care Team Providers + +------+ + | Care Civil Engineering Drafter Name | Role | Phone | + [...] | | | | [address] | [place], [place] | | | | | [place], [place] | [address] | | | | | [address] | [phone] | | | | | [phone] | | | +--------+ + + + [...]
--- OUTSIDE RECORDS SUMMARY | ~2019-04-01 | XMS | Encounter Summary ---
Demographics + + + | Address | [address] | | | [place] [address] | + + + | Home Phone | | + + + | Preferred Language | Unknown | + + + | Marital Status | Single | + + + | Christianity Affiliation | 1041 | + + + | Race | Unknown | + + + | Ethnic Group | Unknown | + + + Author + + + | Author | [facility] | | | and Javierana | + + + | Organization | [facility] | | | and Javierana [...] [place], [place] | | | | | [address] | | + + + + + Care Team Providers + +------+ + | Care Grocery Deliverer Name | Role | Phone | + +------+ + | No, Physician | PCP | Unavailable | + +------+ + Reason for Visit +--------+ + | Reason | Comments | +--------+ + | Other | Post op questions | +--------+ + Encounter Details +--------+ + + + + | Date | Type | Department | Care Team | Description | +--------+ + + + + | 09/08/ | Telephone | [facility] | Fabrizio Pina, | Other (Post op | | 2018 | | [facility] | DO [address] , | questions ) | | | | [address] | [place], [place] | | | | | [place], [place] | [address] | | | | | [address] | [phone] | | | | | [phone] | | | +--------+ + + + [...]
--- OUTSIDE RECORDS SUMMARY | ~2019-04-01 | XMS | Encounter Summary ---
Demographics + + + | Address | [address] | | | [place] [address] | + + + | Home Phone | | + + + | Preferred Language | Unknown | + + + | Marital Status | Single | + + + | Confucianist Affiliation | 1041 | + + + | Race | Unknown | + + + | Ethnic Group | Unknown | + + + Author + + + | Author | [facility] | | | and Javierana | + + + | Organization | [facility] | | | and aJvierana | + + + | Address | Unknown | + + + | Phone | Unavailable | + + + Support + + + + + | Name | Relationship | Address | Phone | + + + + + | Martir Hurtado | ECON | [address] | | | | | [address], [place] | | | | | [address] | | + + + + + Care Team Providers + +------+ + | Care Certified Nurse Name | Role | Phone | + +------+ + PCP | Unavailable | + +------+ + Encounter Details +--------+ + + + + | Date | Type | Department | Care Team | Description | +--------+ + + + + | 03/02/ | Hospital | [facility] | | | | 1999 | Encounter | MED CTR EMERGENCY | | | | | | [address] | | | | | | [place] | | | | | | [address] | | | | | | [phone] | | | +--------+ + + + + Social History + +-------+ +--------+------+ | Tobacco Use | Types | Packs/Day | Years | Date | | | | | Used | | + +-------+ +--------+------+ | Never Assessed | | | | | + +-------+ +--------+------+ + + + | Sex Assigned at [...]
--- OUTSIDE RECORDS SUMMARY | ~2019-04-01 | XMS | Encounter Summary ---
Demographics + + + | Address | [address] | | | [place] [address] | + + + | Home Phone | | + + + | Preferred Language | Unknown | + + + | Marital Status | Single | + + + | Advent Affiliation | 1041 | + + + | Race | Unknown | + + + | Ethnic Group | Unknown | + + + Author + + + | Author | [facility] | | | and Javierana | + + + | Organization | [facility] [...] [address] | | | | | [address], [place] | | | | | [address] | | + + + + + Care Team Providers + +------+ + | Care Maintenance Shop Welder Name | Role | Phone | + [...] | | | Pain of | C, ROBOTIC TECHNICIAN [address] | [address] | | | | | right knee | [address] , | [address] | | | | | after injury | [place] | [place], [place] | | | | | Procedures | [place], [place] | [address] | | | | | MRI Knee | [address] | Phone: | | | | | Right wo | Phone: | [phone] | | | | | Contrast | [phone] | Fax: | | | | | | Fax: | [phone] | | | | | | [phone] | | +--------+--------+ + + + + Reason for Visit Diagnostic/Screening (Emergency) +--------+--------+ + + + + | Status | Reason | Specialty | Diagnoses / | Referred By | Referred To | | | | | Procedures | Contact | Contact | +--------+--------+ + + + + | Closed | | Radiology | Diagnoses | Brandan Riley | Cc Wgr Xray | | | | | Pain of | C, ROBOTIC 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 [address] | [address] | | | | | right knee | [address] | [address] | | | | | after injury | [place] | [place], [place] | | | | | Procedures | [place], [place] | [address] | | | | | MRI Knee | [address] | Phone: | | | | | Right wo | Phone: | [phone] | | | | | Contrast | [phone] | Fax: | | | | | | Fax: | [phone] | | | | | | [phone] | | +--------+--------+ + + + + Encounter Details +--------+ + + + + | Date | Type | Department | Care Team | Description | +--------+ + + + + | 08/06/ | Hospital | [facility] | Brandan Riley, MARIS | Pain of right knee | | 2018 | Encounter | Hospital MRI [address] | [address] | after injury | | | | [address] | [place] | | | | | [place] | [address] | | | | | [address] | [phone] | | | | | [phone] | | | +--------+ + + + [...] | + +--------+ + + + | MRI KNEE RIGHT WO | STAT | 08/06/2017 | Pain of right knee | Results for this | | CONTRAST | | 6:56 PM | after injury | procedure are in the | | | | PDT | | results section. | + +--------+ + + + documented in this encounter Results MRI Knee Right wo [...] intractable with conservative | | | measures-positive Adne's test, positive anterior meniscus test | | [...] injury | + + documented in this encounter"
--- OUTSIDE RECORDS SUMMARY | ~2019-04-01 | XMS | Encounter Summary ---
Demographics + + + | Address | [address] | | | [place] [address] | + + + | Home Phone | | + + + | Preferred Language | Unknown | + + + | Marital Status | Single | + + + | Cheondoism Affiliation | 1041 | + + + | Race | Unknown | + + + | Ethnic Group | Unknown | + + + Author + + + | Author | [facility] | | | and Javierana | + + + | Organization | [facility] | | | and Javierana | + + + | Address | Unknown | + + + | Phone | Unavailable | + + + Support + + + + + | Name | Relationship | Address | Phone | + + + + + | Martir Hurtado | ECON | [address] | | | | | [place], [place] | | | | | [address] | | + + + + + Care Team Providers + +------+ + | Care Quebracho Tanner Name | Role | Phone | + +------+ + | No, Physician | PCP | Unavailable | + +------+ + Reason for Visit +---------+ + | Reason | Comments | +---------+ + | Post Op | right knee PLTOLEDO 09/08/17 | +---------+ + Encounter Details +--------+---------+ + + + | Date | Type | Department | Care Team | Description | +--------+---------+ + + + | 10/19/ | Office | [facility] | Fabrizio Pina, | Status post lateral | | 2018 | Visit | [facility] | DO [address] , | meniscectomy of | | | | [address] | [place], [place] | right knee (Primary | | | | [place], [place] | [address] | Dx) | | | | [address] | [phone] | | | | | [phone] | | | +--------+---------+ + + + [...] + + + | Blood Pressure | 118/74 | 10/19/2017 12:55 PM | | | | | PDT | | + + + + + | Pulse | 87 | 10/19/2017 12:55 PM | | | | | PDT | | + + + + + | Temperature | - | - | | + + + + + | Respiratory Rate | 14 | 10/19/2017 12:55 PM | | | | | PDT | | + + + + + | Oxygen Saturation | 98% | 10/19/2017 12:55 PM | | | | | PDT | | + + + + + | Inhaled Oxygen | - | - | | | Concentration | | | | + + + + + | Weight | 83.9 kg (185 lb) | 10/19/2017 12:55 PM | | | | | PDT | | + + + + + | Height | 172.7 cm (5' 8") | 10/19/2017 12:55 PM | | | | | PDT | | + + + + + | Body Mass Index | 28.13 | 10/19/2017 12:55 PM | | | | | PDT | | + + + + + documented in this encounter Progress Notes Fabrizio Pina, DO - 10/19/2017 1:00 PM PDTFormatting of this note might be different f rom the original. Date of Service: 10/19/2017 Provider: Fabrizio Pina Pt. Name/Age/: Praish Hurtado 17 y.o. 2000 Date of Evalutaion: 10/19/2017 Chief Complaint Patient presents with Post Op right knee PLM, DOS 09/08/17 ORTHOPEDIC CLINIC NOTE DATE OF SERVICE 10/19/17 INTERVAL HISTORY Parish Hurtado returns to clinic today for follow-up. Patient sustained a post burks rgical hemarthrosis of his knee. An aspirate of 80 cc of serosanguineous fluid was removed from his knee on his last appointment on 09/21/17. An order for physical therapy was placed on his last appointment. Patient has been improving with range of motion and strengthening exercises and has noticed a decrease in the swelling about his knee. OBJECTIVE Vitals: 10/19/17 1255 BP: 118/74 Pulse: 87 Resp: 14 PainSc: 0 - No pain PainLoc: Knee GEN: AAO x 3, NAD Incisions are well-healed. Sensation is intact light touch L4-S1 dermatomes bilaterally. EHL dorsiflexion plantar flexion 5 out of 5 bilaterally. Calves are supple nontender bilate rally. On plus effusion on the right knee on today's exam. ASSESSMENT 1. 6 weeks post op RightKnee diagnostic and operative arthroscopy with partial lateral me niscectomy 2. Preoperative diagnosis: Right knee anterior horn lateral meniscus tear 3. Intraoperative findings: Anterior horn lateral meniscus tear with partial bundle ACL tear consistent with posterior lateral bundle tear PLAN 1. A graduated return to activities was instructed 2. Patient may continue to take anti-inflammatory medications for swelling as well as comp ressive therapy and ice. 3. Follow-up as needed More than 10 minutes were spent reviewing patient's medical chart as well as reviewing imag ing and subsequent face to face discussion with and examination of Parish Eben salgado our visit. More than 50% of the visit was spent providing education and counseling to Joshivam and family regarding issues documented in this note. I attest to having reviewed the patient's medical surgical family and social histories as w ell as medications allergies and vital signs found in this chart note which was recorded by my assistant grocery today. Electronically signed by: Fabrizio Pina DO 10/19/2017 13:13 CC: No Physician on file No ref. provider found Note: Part of this report was transcribed using voice recognition software. Every effort w as made to ensure accuracy. However, inadvertent computerized roving sizer errors may be pr esent. documented in this encounter Plan of Treatment Not on filedocumented as of this encounter Visit Diagnoses + + | Diagnosis | + + | Status post lateral meniscectomy of right knee - Primary Other postprocedural status | + + documented in this encounter
--- OUTSIDE RECORDS SUMMARY | ~2019-04-01 | XMS | Encounter Summary ---
Demographics + + + | Address | [address] | | | [place] [address] | + + + | Home Phone | | + + + | Preferred Language | Unknown | + + + | Marital Status | Single | + + + | Mandaeism Affiliation | 1041 | + + + | Race | Unknown | + + + | Ethnic Group | Unknown | + + + Author + + + | Author | [facility] | | | and Javierana | + + + | Organization | [facility] | | | and Javierana [...] [place] | | | | | [address] | | + + + + + Care Team Providers + +------+ + | Care Simulation Specialist Name | Role | Phone | + +------+ + | No, Physician | PCP | Unavailable | + +------+ + Reason for Visit +--------+ + | Reason | Comments | +--------+ + | Other | questions after surgery | +--------+ + Encounter Details +--------+ + + + + | Date | Type | Department | Care Team | Description | +--------+ + + + + | 09/28/ | Telephone | [facility] | Fabrizio Pina, | Other (questions | | 2018 | | [facility] | DO [address] , | after surgery) | | | | [address] | [place], [place] | | | | | [place], [place] | [address] | | | | | [address] | [phone] | | | | | [phone] | | | +--------+ + + + [...]
--- OUTSIDE RECORDS SUMMARY | ~2019-04-01 | XMS | Encounter Summary ---
Demographics + + + | Address | [address] | | | [place] [address] | + + + | Home Phone | | + + + | Preferred Language | Unknown | + + + | Marital Status | Single | + + + | Religion Affiliation | 1041 | + + + | Race | Unknown | + + + | Ethnic Group | Unknown | + + + Author + + + | Author | [facility] | | | and Javierana | + + + | Organization | [facility] | | | and Javierana | [...] [place] | | | | | [address] | | + + + + + Care Team Providers + +------+ + | Care Cannon Fire Direction Specialist Name | Role | Phone | [...] | | | [place], [place] | [address] | | | | | [address] | [phone] | | | | | [phone] | | | +--------+ + + + [...]
--- OUTSIDE RECORDS SUMMARY | ~2019-04-01 | XMS | Encounter Summary ---
Demographics + + + | Address | [address] | | | [place] [address] | + + + | Home Phone | | + + + | Preferred Language | Unknown | + + + | Marital Status | Single | + + + | Confucianism Affiliation | 1041 | + + + | Race | Unknown | + + + | Ethnic Group | Unknown | + + + Author + + + | Author | [facility] | | | and Javierana | + + + | Organization | [facility] | | | and Javierana [...] [place] | | | | | [address] | | + + + + + Care Team Providers + +------+ + | Care Repair Weaver Name | Role | Phone | + [...] | | | [place], [place] | [address] | | | | | [address] | [phone] | | | | | [phone] | | | +--------+ + + + [...]
--- OUTSIDE RECORDS SUMMARY | ~2019-04-01 | XMS | Encounter Summary ---
Demographics + + + | Address | [address] | | | [place] [address] | + + + | Home Phone | | + + + | Preferred Language | Unknown | + + + | Marital Status | Single | + + + | Baptist Affiliation | 1041 | + + + | Race | Unknown | + + + | Ethnic Group | Unknown | + + + Author + + + | Author | [facility] | | | and Javierana | + + + | Organization | [facility] | | | and Javierana | + + + | Address | Unknown | + + + | Phone | Unavailable | + + + Support + + + + + | Name | Relationship | Address | Phone | + + + + + | Martir Hurtado | ECON | [address] | | | | | [place] | | | | | [address] | | + + + + + Care Team Providers + +------+ + | Care Customer Relations Coordinator Name | Role | Phone | + +------+ + PCP | Unavailable | + +------+ + Encounter Details +--------+ + + + + | Date | Type | Department | Care Team | Description | +--------+ + + + + | 03/04/ | Hospital | [facility] | Kapil Pederson DDS | [facility] | | 2003 | Encounter | [facility] | [address] | | | | | OUTPATIENT | [address] [place] | | | | | PROCEDURES [address] | [address] | | | | | [address] | | | | | | [place] | | | | | | [address] | | | | | | [phone] | | | +--------+ + + + [...] + | Diagnosis | + + | Unspecified dental caries | + + documented in this encounter"
--- OUTSIDE RECORDS SUMMARY | ~2019-04-01 | XMS | Encounter Summary ---
Demographics + + + | Address | [address] | | | [place] [address] | + + + | Home Phone | | + + + | Preferred Language | Unknown | + + + | Marital Status | Single | + + + | Holiness Affiliation | 1041 | + + + | Race | Unknown | + + + | Ethnic Group | Unknown | + + + Author + + + | Author | [facility] | | | and Javierana | + + + | Organization | [facility] | | | and Javierana | + + + | Address | Unknown | + + + | Phone | Unavailable | + + + Support + + + + + | Name | Relationship | Address | Phone | + + + + + | Martir Hurtado | ECON | [address] | | | | | [place], [place] | | | | | [address] | | + + + + + Care Team Providers + +------+ + | Care Statistical Modeler Name | Role | Phone | [...] Description | +--------+---------+ + + + | 09/21/ | Office | [facility] | Fabrizio Pina, | Status post | | 2018 | Visit | [facility] | DO [address] , | arthroscopy of right | | | | [address] [place] | [place], [place] | knee | | | | [place], [place] | [address] | | | | | [address] | [phone] | | | | | [phone] | | | +--------+---------+ + + + [...] + + + | Blood Pressure | 124/80 | 09/21/2017 9:00 AM | | | | | PDT | | + + + + + | Pulse | 79 | 09/21/2017 9:00 AM | | | | | PDT | | + + + + + | Temperature | - | - | | + + + + + | Respiratory Rate | 14 | 09/21/2017 9:00 AM | | | | | PDT | | + + + + + | Oxygen Saturation | 97% | 09/21/2017 9:00 AM | | | | | PDT | | + + + + + | Inhaled Oxygen | - | - | | | Concentration | | | | + + + + + | Weight | 83.9 kg (185 lb) | 09/21/2017 9:00 AM | | | | | PDT | | + + + + + | Height | 172.7 cm (5' 8") | 09/21/2017 9:00 AM | | | | | PDT | | + + + + + | Body Mass Index | 28.13 | 09/21/2017 9:00 AM | | | | | PDT | | + + + + + documented in this encounter Progress Notes Fabrizio Pina, DO - 09/21/2017 8:40 AM PDTFormatting of this note might be different f rom the original. Date of Service: 09/21/2017 Provider: Fabrizio Pina Pt. Name/Age/: Parish Hurtado 17 y.o. 2000 Date of Evalutaion: 09/21/2017 Chief Complaint Patient presents with Post Op right knee PLM, DOS 09/08/17 ORTHOPEDIC CLINIC NOTE DATE OF SERVICE 09/21/17 INTERVAL HISTORY Parish Hurtado returns to clinic today for follow-up. Patient states that overall he is doing well however has tightness and swelling in his knee. He has not undergone any physical therapy as of yet. He has no fevers or chills today. OBJECTIVE Vitals: 09/21/17 0900 BP: 124/80 Pulse: 79 Resp: 14 PainSc: 3 PainLoc: Knee GEN: AAO x 3, NAD Incisions are clean dry and intact. Sutures are removed structures applied. Range of talon on-5 of full extension and 100 of flexion. He does have 2+ effusion of the right knee. ASSESSMENT 1. 2 weeks post op Right Knee diagnostic and operative arthroscopy with partial lateral men iscectomy 2. Preoperative diagnosis: Right knee anterior horn lateral meniscus tear 3. Intraoperative findings: Anterior horn lateral meniscus tear with partial bundle ACL t ear consistent with posterior lateral bundle tear 4. Hemarthrosis PLAN 1. We discussed aspiration of hemarthrosis. Patient is agreeable. After Timeout obtained and consent from the patient obtained 80 cc of serosanguineous fluid was aspirated through t he superolateral portal of the right knee. Patient tolerated this well without complication . 2. Patient is enrolled in physical therapy. 3. Follow-up in 4 weeks. More than 30 minutes were spent reviewing patient's medical chart as well as reviewing imag ing and subsequent face to face discussion with and examination of Parish salgado our visit. More than 50% of the visit was spent providing education and counseling to Joshivam and family regarding issues documented in this note. I attest to having reviewed the patient's medical surgical family and social histories as w ell as medications allergies and vital signs found in this chart note which was recorded by my community assistant today. Electronically signed by: Fabrizio Pina DO 09/21/2017 10:04 CC: No Physician on file No ref. provider found Note: Part of this report was transcribed using voice recognition software. Every effort w as made to ensure accuracy. However, inadvertent computerized recovery specialist errors may be pr esent. documented in this encounter Plan of Treatment Not on filedocumented as of this encounter Visit Diagnoses + + | Diagnosis | + + | Status post arthroscopy of right knee Other postprocedural status | + + documented in this encounter
--- OUTSIDE RECORDS SUMMARY | ~2019-04-01 | XMS | Encounter Summary ---
Demographics + + + | Address | [address] | | | [place] [address] | + + + | Home Phone | | + + + | Preferred Language | Unknown | + + + | Marital Status | Single | + + + | Pentecostalism Affiliation | 1041 | + + + | Race | Unknown | + + + | Ethnic Group | Unknown | + + + Author + + + | Author | [facility] | | | and Javierana | + + + | Organization | [facility] | | | and Javierana | + + + | Address | Unknown | + + + | Phone | Unavailable | + + + Support + + + + + | Name | Relationship | Address | Phone | + + + + + | Martir Hurtado | ECON | [address] | | | | | [facility], [place] | | | | | [address] | | + + + + + Care Team Providers + +------+ + | Care Addresser Name | Role | Phone | + [...] | | | Pain of | C, QUALITY SYSTEMS TECHNICIAN [address] | [address] | | | | | right knee | [address] , | [address] | | | | | after injury | [place] | [place], [place] | | | | | Procedures | [place], [place] | [address] | | | | | MRI Knee | [address] | Phone: | | | | | Right wo | Phone: | [phone] | | | | | Contrast | [phone] | Fax: | | | | | | Fax: | [phone] | | | | | | [phone] | | +--------+--------+ + + + + [...] | | | Pain of | C, QUALITY SYSTEMS TECHNICIAN [address] | [address] | | | | | right knee | [address] | [address] | | | | | after injury | [place] | [place], [place] | | | | | Procedures | [place], [place] | [address] | | | | | MRI Knee | [address] | Phone: | | | | | Right wo | Phone: | [phone] | | | | | Contrast | [phone] | Fax: | | | | | | Fax: | [phone] | | | | | | [phone] | | +--------+--------+ + + + + [...] | | | | [place] | [address] | | | | | [address] | [phone] | | | | | [phone] | | | +--------+ + + + [...]
--- OUTSIDE RECORDS SUMMARY | ~2019-04-01 | XMS | Encounter Summary ---
Demographics + + + | Address | [address] | | | [place] [address] | + + + | Home Phone | | + + + | Preferred Language | Unknown | + + + | Marital Status | Single | + + + | Orthodox Affiliation | 1041 | + + + | Race | Unknown | + + + | Ethnic Group | Unknown | + + + Author + + + | Author | [facility] | | | and Javierana | + + + | Organization | [facility] | | | and Javierana | + + + | Address | Unknown | + + + | Phone | Unavailable | + + + Support + + + + + | Name | Relationship | Address | Phone | + + + + + | Martir Hurtado | ECON | [address] | | | | | [address] [facility] [place] | | | | | [address] | | + + + + + Care Team Providers + +------+ + | Care Dehydrator Name | Role | Phone | + +------+ + | No, Physician | PCP | Unavailable | + +------+ + Reason for Visit + + + | Reason | Comments | + + + | Knee Pain | right knee, DOI 07/28/17 football practice | + + + Encounter Details +--------+---------+ + + + | Date | Type | Department | Care Team | Description | +--------+---------+ + + + | 08/17/ | Office | [facility] | Fabrizio Pina, | Other old tear of | | 2018 | Visit | [facility] | [address] , | lateral meniscus of | | | | [address] | [place], [place] | right knee (Primary | | | | [place], [place] | [address] | Dx) | | | | [address] | [phone] | | | | | [phone] | | | +--------+---------+ + + + [...] + + + | Blood Pressure | 112/74 | 08/17/2017 9:04 AM | | | | | PDT | | + + + + + | Pulse | 75 | 08/17/2017 9:04 AM | | | | | PDT | | + + + + + | Temperature | - | - | | + + + + + | Respiratory Rate | 14 | 08/17/2017 9:04 AM | | | | | PDT | | + + + + + | Oxygen Saturation | 98% | 08/17/2017 9:04 AM | | | | | PDT | | + + + + + | Inhaled Oxygen | - | - | | | Concentration | | | | + + + + + | Weight | 83.9 kg (185 lb) | 08/17/2017 9:04 AM | | | | | PDT | | + + + + + | Height | 172.7 cm (5' 8") | 08/17/2017 9:04 AM | | | | | PDT | | + + + + + | Body Mass Index | 28.13 | 08/17/2017 9:04 AM | | | | | PDT | | + + + + + documented in this encounter Progress Notes Fabrizio Pina, DO - 08/17/2017 9:00 AM PDTFormatting of this note might be different f rom the original. Date of Service: 08/17/2017 Provider: Fabrizio Pina Pt. Name/Age/: Parish Hurtado 17 y.o. 2000 Date of Evalutaion: 08/17/2017 Chief Complaint Patient presents with Knee Pain right knee, DOI 07/28/17 football practice Orthopedic Surgery Consult HISTORY OF PRESENT ILLNESS Parish Hurtado is a 17 y.o. male here to discuss right knee pain. 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 The pain is significantly worsened by weightbearin g especially when the leg is completely straight. He rates the pain a 5 out of 10 and it do es travel through the entire knee sometimes to the back of the knee though the initial injur y produced pain in the front of the knee." Patient confirms the history noted above. He is been attempting conservative modalities as noted above. He has been working with the product trainer at [employer] however continues to have pain and discomfort with terminal extension and pivoting off of his right leg. An MRI has been ordered and con firmed meniscal tear. He presents today to discuss treatment options. He continues to expe rience swelling in his knee with a catching locking popping sensation and pain with any type s of terminal extension. PAST MEDICAL HISTORY History reviewed. No pertinent past medical history. PAST SURGICAL HISTORY Past Surgical History: Procedure Laterality Date KNEE SURGERY Right MEDICATIONS No current outpatient prescriptions on file. No current facility-administered medications for this visit. ALLERGIES No Known Allergies SOCIAL HISTORY Social History Social History Marital status: Single Spouse name: N/A Number of children: N/A Years of education: N/A Occupational History Not on file. Social History Main Topics Smoking status: Never Smoker Smokeless tobacco: Never Used Alcohol use No Drug use: No Sexual activity: Not on file Other Topics Concern Not on file Social History Narrative No narrative on file FAMILY HISTORY Family History Problem Relation Age of Onset Family history unknown: Yes Review of systems: Patient denies any nausea vomiting fevers chills chest pain shortness o f breath difficulty breathing constipation diarrhea blood in the stool blood or in the urine . Patient indicates all other systems are negative. Physical exam: BP 112/74 | Pulse 75 | Resp 14 | Ht 1.727 m (5' 8") | Wt 83.9 kg (185 lb) | SpO2 98% | BMI 28.13 kg/m BMI: Body mass index is 28.13 kg/m. General: Patient is of normal development. Groomed and in a good nutritional state. Aler t and oriented x3. HEENT: Head is normocephalic atraumatic no scleral icterus or cervical adenopathy is appre ciated on exam Respiratory: Chest rise is symmetric. No conversational dyspnea or audible wheezing is rach reciated on exam. Respiratory rate is normal. Cardiovascular: Radial pulses are felt. They are 2/4 bilaterally. They demonstrate regula r rate and rhythm. Abdomen: Soft nontender nondistended. Musculoskeletal: Sensation is intact to light touch L4-S1 dermatomes bilaterally. EHL dors iflexion plantar flexion is 5 over 5 bilaterally. Calves are supple nontender bilaterally. Range of motion demonstrates -3 of full extension and 120 of flexion with the right kne e. Left knee dentures full extension and 135 of flexion. He does have tenderness palpati on along the anterolateral right knee. Has pain with a Mary's test. He has a negative anterior posterior drawer negative Dane negative pivot shift test bilaterally. He has a trace effusion on today's exam. Imaging: Recent Results (from the past 360 hour(s)) XR Knee Right 4 + Vw Narrative EXAMINATION: XR KNEE RIGHT 4 + VW HISTORY: Right knee injury pain COMPARISON STUDY: None FINDINGS: Films in multiple projections show no evidence of an acute fracture. No subluxation. No dislocation. Age appropriate bone mineral density. Impression IMPRESSION: No acute process. Dictated by: Mikhail Whitehead Knee Right wo Contrast Narrative EXAMINATION: MRI KNEE RIGHT WO CONTRAST HISTORY: Kicker with football injury to his kicking leg resulting in painful swelling most intense a t the anterior joint line intractable with conservative measures-positive Dane's test, po sitive anterior meniscus test COMPARISON STUDY: None TECHNIQUE: Multiplanar multi sequence MRI of the knee was performed without contrast FINDINGS: The lateral menisci anterior horn root has a tear. The medial menisci is intact . The anterior cruciate ligament has some intact fibers. Overall the ligament is isointense suggesting a partial-thickness injury The posterior cruciate ligament is intact . The medial collateral ligament is intact . The lateral collateral ligament complex, including the tendon of the long head of the bicep s femoris, the fibular collateral ligament, and the popliteus tendon is intact. Moderate joint effusion. The extensor mechanism, including the quadriceps and patellar tendon is intact. Minimal pre patellar bursal fluid. The medial and lateral patellar retinacula are intact . The cartilage within the patellofemoral compartment is intact. The cartilage within the medial compartment is normal. The cartilage in the lateral compartment is normal . Evaluation of the osseous structures demonstrates no focal abnormality. Evaluation of the soft tissues demonstrates no focal abnormality . Impression IMPRESSION: 1. Partial-thickness tear of the anterior cruciate ligament. 2. Anterior horn root tear of the lateral meniscus. Dictated by: Mikhail Whitehead All pertinent imaging results were discussed with patient on today's visit. Laboratory: No results found for this or any previous visit. Assessment Anterior horn lateral meniscus tear right knee Plan: We discussed treatment options today. Conservative versus operative measures were discusse d. We also discussed arthroscopic surgical repair versus resection of the damaged meniscal tissue. Postoperative rehabilitation was discussed. Risks benefits and alternatives of surgical intervention were discussed with the patient. R isks included but not limited to heart attack stroke loss of life or limb nerve injury vesse l injury infection stiffness or return to the operating room for subsequent surgical interve ntion was discussed. Postoperative rehabilitation was discussed as well with the patient. Zay grayson demonstrates understanding of the risks and wishes to proceed with surgical interventi on. I will proceed with surgery at his request. More than 20 minutes were spent reviewing patient's medical chart as well as reviewing imag ing and subsequent face to face discussion with and examination of Parish Hurtado during ou r visit. More than 50% of the visit was spent providing education and counseling to Parish rojo family regarding issues documented in this note. I attest to having reviewed the patient's medical surgical family and social histories as w ell as medications allergies and vital signs found in this chart note which was recorded by my psychological assistant today. Electronically signed by: Fabrizio Pina DO 08/17/2017 9:41 CC: No Physician on file No ref. provider found Note: Part of this report was transcribed using voice recognition software. Every effort wa s made to ensure accuracy. However, inadvertent computerized wedding designer errors may be pre sent. documented in this encounter Plan of Treatment Not on filedocumented as of this encounter Visit Diagnoses + + | Diagnosis | + + | Other old tear of lateral meniscus of right knee - Primary | + + documented in this encounter
--- OUTSIDE RECORDS SUMMARY | ~2019-04-01 | XMS | Encounter Summary ---
Demographics + + + | Address | [address] | | | [place] [address] | + + + | Home Phone | | + + + | Preferred Language | Unknown | + + + | Marital Status | Single | + + + | Episcopalian Affiliation | 1041 | + + + | Race | Unknown | + + + | Ethnic Group | Unknown | + + + Author + + + | Author | [facility] | | | and Javierana | + + + | Organization | [facility] | | | and [...] [place], [place] | | | | | [address] | | + + + + + Care Team Providers + +------+ + | Care Quality Assurance Nurse Name | Role | Phone | [...] | | | [place], [place] | [address] | | | | | [address] | [phone] | | | | | [phone] | | | +--------+ + + + [...]
--- OUTSIDE RECORDS SUMMARY | ~2019-04-01 | XMS | Encounter Summary ---
Demographics + + + | Address | [address] | | | [place] [address] | + + + | Home Phone | | + + + | Preferred Language | Unknown | + + + | Marital Status | Single | + + + | Buddhist Affiliation | 1041 | + + + | Race | Unknown | + + + | Ethnic Group | Unknown | + + + Author + + + | Author | [facility] | | | and Javierana | + + + | Organization | [facility] | | | and Javierana [...] [place], [place] | | | | | [address] | | + + + + + Care Team Providers + +------+ + | Care Estimator Paperboard Boxes Name | Role | Phone | + [...] | | | [place], [place] | [address] | | | | | [address] | [phone] | | | | | [phone] | | | +--------+ + + + [...]
--- OUTSIDE RECORDS SUMMARY | ~2019-04-01 | XMS | Encounter Summary ---
Demographics + + + | Address | [address] | | | [place] [address] | + + + | Home Phone | | + + + | Preferred Language | Unknown | + + + | Marital Status | Single | + + + | Mormon Affiliation | 1041 | + + + | Race | Unknown | + + + | Ethnic Group | Unknown | + + + Author + + + | Author | [facility] | | | and Javierana | + + + | Organization | [facility] | | | and [place]avier[place] | + + + | Address | Unknown | + + + | Phone | Unavailable | + + + Support + + + + + | Name | Relationship | Address | Phone | + + + + + | Martir Hurtado | ECON | [address] | | | | | [place], [place] | | | | | [address] | | + + + + + Care Team Providers + +------+ + | Care Military Nurse Name | Role | Phone | + +------+ + PCP | Unavailable | + +------+ + Encounter Details +--------+ + + + + | Date | Type | Department | Care Team | Description | +--------+ + + + + | 03/04/ | Hospital | [facility] | Kapil Pederson DDS | [facility] | | 2003 | Encounter | [facility] | [address] | | | | | OUTPATIENT | [address] [place] | | | | | PROCED[address] | [address] | | | | | [address] | | | | | | [place] | | | | | | [address] | | | | | | [phone] | | | +--------+ + + + [...]
--- OUTSIDE RECORDS SUMMARY | ~2019-04-01 | XMS | Encounter Summary ---
Demographics + + + | Address | [address] | | | [place] [address] | + + + | Home Phone | | + + + | Preferred Language | Unknown | + + + | Marital Status | Single | + + + | Orthodox Affiliation | 1041 | + + + | Race | Unknown | + + + | Ethnic Group | Unknown | + + + Author + + + | Author | [facility] | | | and Javierana | + + + | Organization | [facility] | | | and Javierana [...] [place] | | | | | [address] | | + + + + + Care Team Providers + +------+ + | Care Manager Law Name | Role | Phone | + +------+ + | No, Physician | PCP | Unavailable | + +------+ + Reason for Visit +--------+ + | Reason | Comments | +--------+ + | Other | R knee swelling | +--------+ + Encounter Details +--------+ + + + + | Date | Type | Department | Care Team | Description | +--------+ + + + + | 10/28/ | Telephone | [facility] | Fabrizio Pina, | Tom (Mica knee | | 2018 | | [facility] | [address] , | swelling) | | | | [address] | [place], [place] | | | | | [place], [place] | [address] | | | | | [address] | [phone] | | | | | [phone] | | | +--------+ + + + [...]
--- OUTSIDE RECORDS SUMMARY | ~2019-04-01 | XMS | Clinical Summary ---
Demographics + + + | Address | [address] | | | [place] [address] | + + + | Home Phone | | + + + | Preferred Language | Unknown | + + + | Marital Status | Single | + + + | Taoist Affiliation | 1041 | + + + | Race | Unknown | + + + | Ethnic Group | Unknown | + + + Author + + + | Author | [facility] | | | and Javierana | + + + | Organization | [facility] | | | and [place] | + + + | Address | Unknown | + + + | Phone | Unavailable | + + + Support + + + + + | Name | Relationship | Address | Phone | + + + + + | Martir Hurtado | ECON | [address] | | | | | [address] | | | | | [address] | | + + + + + Care Team Providers + +------+ + | Care Tool And Die Supervisor Name | Role | Phone | + +------+ + | No, Physician | PCP | Unavailable | + +------+ + Allergies No Known Allergies Medications No known medications Active Problems + + + | Problem | Noted Date | + + + | Status post lateral meniscectomy of right knee | 10/18/2017 | + + + | Status post arthroscopy of right knee | 09/20/2017 | + + + | Old tear of lateral meniscus of right knee | 08/16/2017 | + + + | Pain of right knee after injury | 08/04/2017 | + + + Social History + +-------+ [...] recent travel history available. | + + Last Filed Vital Signs + + + [...] | | + + + + + Plan of Treatment + + + + + | Health Maintenance | Due Date | Last Done | Comments | + + + + + | Well Child Check | | | | | | 1 | | | + + + + + | Vaccine: | | | | | Dtap/Tdap/Td (1 - | 9 | | | | Tdap) | | | | + + + + + | Vaccine: HPV (1 - | | | | | Male 2-dose series) | 9 | | | + + + + + | Vaccine: Influenza | | | | | (#1) | 9 | | | + + + + + Results Not on filefrom Last 3 Months Insurance + +--------+ +--------+ +---------+------+ | Payer | Benefi | Subscriber | Effect | Phone | Address | Type | | | t Plan | ID | joan | | | | | | / | | Dates | | | | | | Group | | | | | | + +--------+ +--------+ +---------+------+ | [facility] | [place] | [id number] | | [phone] | | PPO | | | | | 017-Pr | 2 | | | | | HEALTH | | esent | | | | | | CARE | | | | | | | | PPO | | | | | | + +--------+ +--------+ +---------+------+ | [employer] | COMMER | [id number] | 12/05/19 | | | PPO | | | CIAL | | 17-Pre | | | | | | PPO | | sent | | | | | | OTHER | | | | | | + +--------+ +--------+ +---------+------+ + +--------+ +--------+ + + | Guarantor Name | Accoun | Relation to | Date | Phone | Billing Address | | | t Type | Patient | of | | | | | | | | | | + +--------+ +--------+ + + | MARTIR HURTADO | Person | Father [birth year] | [address] | | | al/Fam | | 1968 | [phone] | [place] [address] | | | joseline | | | 8 (Home) | | + +--------+ +--------+ + + Advance Directives + + + + + | Type | Date Recorded | Patient | Explanation | | | | Clinical Informatics Director | | + + + + + | Power of | | | | | Road Test Examiner | | | | + + + + + | Advance | 10/19/2017 12:42 | | | | Directive | PM | | | + + + + + + + + + + | Code Status | Date | Date | Comments | | | Activated | Inactivated | | + + + + + | Full Code | 09/08/2017 | 09/08/2017 | | | by default | 9:18 AM | 1:02 PM | | | - TBD | | | | + + + + +
--- OUTSIDE RECORDS SUMMARY | ~2019-04-01 | XMS | Encounter Summary ---
Demographics + + + | Address | [address] | | | [place] [address] | + + + | Home Phone | | + + + | Preferred Language | Unknown | + + + | Marital Status | Single | + + + | Christianity Affiliation | 1041 | + + + | Race | Unknown | + + + | Ethnic Group | Unknown | + + + Author + + + | Author | [facility] | | | and Javierana | + + + | Organization | [facility] | | | and Javierana | + + + | Address | Unknown | + + + | Phone | Unavailable | + + + Support + + + + + | Name | Relationship | Address | Phone | + + + + + | Martir Hurtado | ECON | [address] | | | | | [address], [place] | | | | | [address] | | + + + + + Care Team Providers + +------+ + | Care Cryogenics Repairer Name | Role | Phone | + [...] | | | | | | | WA ARTHRS | | | | | | | KNE SURG | | | | | | | W/MENISCECTO | | | | | | | MY MED/LAT | | | | | | | W/SHVG [place] | | | | | | | [...] | | | | [place], [place] | [address] | | | | | [address] | [phone] | | | | | [phone] | | | +--------+ + + + [...] affected knee as much as you can mwxfipwe4nohr after surgery. Slowly bend and straighten your affected leg as far as you can, unless your doctor tells you otherwise. Do this several times a day. Rest your knee by lying down and putting pillows under it for the oojcs0pqag after s urgery. Keep your ankle elevated [...] your d octor says it s OK. Fhqo8wjh(s)after your surgery to begin showering. Then shower [...] the knee. Apply the ic e pack [id number]; then remove it [id number]. Repeat as needed. Icing helps redu ce [...] sent through Care Everywhere.Anesthesia: Gen fierro Anesthesia (Kittitian)documented in this encounter Medications at Time of [...]
--- OUTSIDE RECORDS SUMMARY | ~2019-04-01 | XMS | Encounter Summary ---
Demographics + + + | Address | [address] | | | [place] [address] | + + + | Home Phone | | + + + | Preferred Language | Unknown | + + + | Marital Status | Single | + + + | Nondenominational Affiliation | 1041 | + + + | Race | Unknown | + + + | Ethnic Group | Unknown | + + + Author + + + | Author | [facility] | | | and Javierana | + + + | Organization | [facility] | | | and Javierana [...] [facility], [place] | | | | | [address] | | + + + + + Care Team Providers + +------+ + | Care Staple Cutter Name | Role | Phone | + +------+ + PCP | Unavailable | + +------+ + Encounter Details +--------+ + + + + | Date | Type | Department | Care Team | Description | +--------+ + + + + | 03/02/ | Hospital | [facility] | | | | 1999 | Encounter | [facility] | | | | | | [place] [address] | | | | | | [place] | | | | | | [address] | | | | | | [phone] | | | +--------+ + + + [...]
--- OUTSIDE RECORDS SUMMARY | ~2019-04-01 | XMS | Encounter Summary ---
Demographics + + + | Address | [address] | | | [place] [address] | + + + | Home Phone | | + + + | Preferred Language | Unknown | + + + | Marital Status | Single | + + + | Uatsdin Affiliation | 1041 | + + + | Race | Unknown | + + + | Ethnic Group | Unknown | + + + Author + + + | Author | [facility] | | | and Javierana | + + + | Organization | [facility] | | | and Javierana | + + + | Address | Unknown | + + + | Phone | Unavailable | + + + Support + + + + + | Name | Relationship | Address | Phone | + + + + + | Martir Hurtado | ECON | [address] | | | | | [place], [place] | | | | | [address] | | + + + + + Care Team Providers + +------+ + | Care Double Corner Cutter Name | Role | Phone | + +------+ + | No, Physician | PCP | Unavailable | + +------+ + Reason for Referral Self-referral (Routine) +--------+ + + + + + | Status | Reason | Specialty | Diagnoses / | Referred By | Referred To | | | | | Procedures | Contact | Contact | +--------+ + + + + + | Closed | Specialty | Physical | Diagnoses | Yovani | MICHAEL | | | Services | Therapy | S/P | Fabrizio Mayers, | KAUSHAL | | | Required | | arthroscopic | DO [address] | PHYSICAL | | | | | partial | [address], | THERAPY - | | | | | lateral | [place] [address] [place] | [place] | | | | | meniscectomy | [place], [place] | [address] | | | | | | [address] | [address] | | | | | Hemarthrosis | Phone: | 15 | | | | | of right | [phone] | [place], [place] | | | | | knee | Fax: | [address] | | | | | Procedures | [phone] | Phone: | | | | | PT | | [phone] | | | | | | | Fax: | | | | | | | [phone] | +--------+ + + + + + Reason for Visit +--------+ + | Reason | Comments | +--------+ + | Other | Physical Therapy Orders | +--------+ + Encounter Details +--------+ + + + + | Date | Type | Department | Care Team | Description | +--------+ + + + + | 09/23/ | Telephone | [place] [facility] | Fabrizio Pina, | Other (Physical | | 2018 | | [facility] | DO [address] , | Therapy Orders ) | | | | [address] | [place], [place] | | | | | [place], [place] | [address] | | | | | [address] | [phone] | | | | | [phone] | | | +--------+ + + + [...] as of this encounter Plan of Treatment + + +--------+ + + | Name | Type | Priori | Associated Diagnoses | Order Schedule | | | | ty | | | + + +--------+ + + | Physical Therapy - | Outpatient | Routin | S/P arthroscopic | Ordered: 09/23/2017 | | Ambulatory Referral | Referral | e | partial lateral | | | | | | meniscectomy | | | | | | Hemarthrosis of | | | | | | right knee | | + + +--------+ + + documented as of this encounter Visit Diagnoses + + | Diagnosis | + + | S/P arthroscopic partial lateral meniscectomy - Primary Other postprocedural status | + + | Hemarthrosis of right knee Hemarthrosis, lower leg | + + documented in this encounter"
--- OUTSIDE RECORDS SUMMARY | ~2019-04-01 | XMS | Encounter Summary ---
Demographics + + + | Address | [address] | | | [place] [address] | + + + | Home Phone | | + + + | Preferred Language | Unknown | + + + | Marital Status | Single | + + + | Roman Catholic Affiliation | 1041 | + + + | Race | Unknown | + + + | Ethnic Group | Unknown | + + + Author + + + | Author | [facility] | | | and Javierana | + + + | Organization | [facility] | | | and Javierana [...] [place] | | | | | [address] | | + + + + + Care Team Providers + +------+ + | Care Health Sanitarian Name | Role | Phone | + [...] | | | [place], [place] | [address] | | | | | [address] | [phone] | | | | | [phone] | | | +--------+ + + + [...]
--- OUTSIDE RECORDS SUMMARY | ~2019-04-01 | XMS | Encounter Summary ---
Demographics + + + | Address | [address] | | | [place] [address] | + + + | Home Phone [...] Author + + + | Author | [facility] | | | and Javierana | + + + | Organization | [facility] | | | and Javierana | + + + | Address | Unknown | + + + | Phone | Unavailable | + + + Support + + + + + | Name | Relationship | Address | Phone | + + + + + | Martir Hurtado | ECON | [address] | | | | | [place] | | | | | [address] | | + + + + + Care Team Providers + +------+ + | Care Bander Hand Name | Role | Phone | + +------+ + | No, Physician | PCP | Unavailable | + +------+ + Encounter Details +--------+ + + + + | Date | Type | Department | Care Team | Description | +--------+ + + + + | 08/04/ | [facility] | [facility] [facility] | Brandan Riley FNP | Pain of right knee | | 2018 | Encounter | HOSPITAL | [address] | after injury | | | | ORTHOPAEDICS XRAY | [place], [place] | | | | | [address] [place] | [address] | | | | | [place], [place] | [phone] | | | | | [address] | | | | | | [phone] | | | +--------+ + + + [...] | + +--------+ + + + | XR KNEE RIGHT 4 + VW | Routin | 08/04/2017 | Pain of right knee | Results for this | | | e | 3:20 PM | after injury | procedure are in the | | | | PDT | | results section. | + +--------+ + + + documented in this encounter Results XR Knee Right 4 + Vw (08/04/2017 [...] | Procedure Note | + + | Moe Portillo Results In 08/04/2017 4:21 PM PDT EXAMINATION:XR KNEE RIGHT [...]
--- OUTSIDE RECORDS SUMMARY | ~2019-04-01 | XMS | Encounter Summary ---
Demographics + + + | Address | [address] | | | [place] [address] | + + + | Home Phone | | + + + | Preferred Language | Unknown | + + + | Marital Status | Single | + + + | Synagogue Affiliation | 1041 | + + + | Race | Unknown | + + + | Ethnic Group | Unknown | + + + Author + + + | Author | [facility] | | | and Javierana | + + + | Organization | [facility] [...] [address] | | | | | [place], [place] | | | | | [address] | | + + + + + Care Team Providers + +------+ + | Care Residency Coordinator Name | Role | Phone | [...] [address] | | | | | | [address] | [address] | | | | | Hemarthrosis | Phone: | 15 | | | | | of right | [phone] | [place], [place] | | | | | knee | Fax: | [address] | | | | | Procedures | [phone] | Phone: | | | | | PT | | [phone] | | | | | | | Fax: | | | | | | | [phone] | +--------+ + + + + + [...] | | | [place], [place] | [address] | | | | | [address] | [phone] | | | | | [phone] | | | +--------+ + + + [...]
--- OUTSIDE RECORDS SUMMARY | ~2019-04-01 | XMS | Encounter Summary ---
Demographics + + + | Address | [address] | | | [place] [address] | + + + | Home Phone [...] Author + + + | Author | [facility] | | | and Javierana | + + + | Organization | [facility] | | | and Javierana | + + + | Address | Unknown | + + + | Phone | Unavailable | + + + Support + + + + + | Name | Relationship | Address | Phone | + + + + + | Martir Hurtado | ECON | [address] | | | | | [facility] [place] | | | | | [address] | | + + + + + Care Team Providers + +------+ + | Care Equine Breeder Name | Role | Phone | + [...] | | | [place], [place] | [address] | Dx) | | | | [address] | [phone] | | | | | [phone] | | | +--------+---------+ + + + [...] 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 Electronically signed by: Fabrizio Pina DO 08/17/2017 9:41 CC: No Physician on file No ref. provider found Note: Part of this report was transcribed using voice recognition software. Every effort wa s made to ensure accuracy. However, inadvertent computerized product blending supervisor errors may be pre sent. documented in this encounter Plan of Treatment Not on filedocumented as of this encounter Visit Diagnoses + + | Diagnosis | + + | Other old tear of lateral meniscus of right knee - Primary | + + documented in this encounter
--- OUTSIDE RECORDS SUMMARY | ~2019-04-01 | XMS | Encounter Summary ---
Demographics + + + | Address | [address] | | | [place] [address] | + + + | Home Phone [...] + + + | Author | [facility] | | | and Javierana | + + + | Organization | [facility] [...] [place] | | | | | [address] | | + + + + + Care Team Providers + +------+ + | Care Crayon Grader Name | Role | Phone | + +------+ + | No, Physician | PCP | Unavailable | + +------+ + Encounter Details +--------+ + + + + | Date | Type | Department | Care Team | Description | +--------+ + + + + | 08/04/ | A[facility] | [facility] | Brandan Riley FNP | Pain of right knee | | 2018 | Encounter | HOSPITAL | [address] | after injury | | | | ORTHOPAEDICS XRAY | [place], [place] | | | | | [address] [place] | [address] | | | | | [place], [place] | [phone] | | | | | [address] | | | | | | [phone] | | | +--------+ + + + [...]
--- OUTSIDE RECORDS SUMMARY | ~2019-04-01 | XMS | Encounter Summary ---
Demographics + + + | Address | [address] | | | [place] [address] | + + + | Home Phone | | + + + | Preferred Language | Unknown | + + + | Marital Status | Single | + + + | Orthodoxy Affiliation | 1041 | + + + | Race | Unknown | + + + | Ethnic Group | Unknown | + + + Author + + + | Author | [facility] | | | and Javierana | + + + | Organization | [facility] | | | and Javierana | + + + | Address | Unknown | + + + | Phone | Unavailable | + + + Support + + + + + | Name | Relationship | Address | Phone | + + + + + | Martir Hurtado | ECON | [address] | | | | | [address] [place], [place] | | | | | [address] | | + + + + + Care Team Providers + +------+ + | Care Manager Product Marketing Name | Role | Phone | + [...] | | | Pain of | C, [employer] CONSULTANT [address] | [address] | | | | | right knee | [address] | [address] | | | | | after injury | [place] [place] | [place], [place] | | | | | Procedures | [place] | [address] | | | | | MRI Knee | [address] | Phone: | | | | | Right wo | Phone: | [phone] | | | | | Contrast | [phone] | Fax: | | | | | | Fax: | [phone] | | | | | | [phone] | | +--------+--------+ + + + + Reason for Visit + + + | Reason | Comments | + + + | Knee Pain | 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 How [...] thighbone a nd shinbone. Date Last Reviewed: 12/23/201419995860-3479 The Fetch MD. [address] [place] [address], [place] [address]. All righ ts reserved. This information is [...] surgical or orthopedic supply stores). Follow your [facility] provider's advice about when to begin [...] splint. If you have to wear a dyky-ebu-drhiltaj brace, yo u can open it to apply the ice pack, or heat, directly to the knee. Never put ice directly o n the skin. Always wrap the ice in a towel or other type of cloth. You may flpdnsb-yzc-rymsomw pain medicineto control pain, unless another pain [...] wet, you can dry it with a dental chair assembler. If you have cjjoh-idv-yturpsct b race, you can remove this to [...] by your healthcare provider Date Last Reviewed: 02/25/201519992722-0508 The Fetch MD. [address] [place] [address], [place] [address]. All righ ts reserved. This information is [...] the outs ryan of the joint prevent ysle-nb-uork motion. These are called the collateral ligaments. [...] knee to reduce swelling and pain.You may jszzntm-jxm-tdofpyo pain medicineto con trol pain, unless another [...] that leg. If you were given a qaef-lcv-qfhz closure knee brace, you can remove it [...] splint. If you have to wear a jizr-iie-dsisangv brace, y ou can open it to apply the ice pack, or heat, directly to the knee. Never put ice directly on the skin. Always wrap the ice in a towel or other type of cloth. You may yhldoft-fxi-mzeenjs pain medicineto control pain, unless another pain [...] or they get worse, talk with your [facility] provider. You may need a repeat X-ray.If [...] the calf or thigh Date Last Reviewed: 02/22/201519991927-3545 The Fetch MD. [address] [place] [address], [place] [address]. All righ ts reserved. This information is [...] Your next appointment is: Date Last Reviewed: 09/03/201619995877-5372 The Fetch MD. [address] [place], [place] [address]. All righ ts reserved. This information is not intended as a substitute for professional medical care. Always follow your healthcare professional's instructions. documented in this encounter Progress Notes Brandan Riley FNP - 08/04/2017 3:00 PM PDT Orthopedic Clinic Note Patient Name: Parish Hurtado | Age: 17 y.o. 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 Follow-up Return for MRI follow-up by [...] and their vital signs recorded by my assistant program manager today, jett landeros found in this chart note. Electronically signed by: SUSANNAH Raines 08/04/2017 at 15:32 Note: Part of this report was transcribed using voice recognition software. Every effort wa s made to ensure accuracy. However, inadvertent computerized local driver errors may be pre sent. CC: No [...]
--- OUTSIDE RECORDS SUMMARY | ~2019-04-01 | XMS | Clinical Summary ---
Demographics + + + | Address | [address] | | | [place] [address] | + + + | Home Phone | | + + + | Preferred Language | Unknown | + + + | Marital Status | Single | + + + | Evangelical Affiliation | 1041 | + + + | Race | Unknown | + + + | Ethnic Group | Unknown | + + + Author + + + | Author | [facility] | | | and Javierana | + + + | Organization | [facility] | | | and Javierana | + + + | Address | Unknown | + + + | Phone | Unavailable | + + + Support + + + + + | Name | Relationship | Address | Phone | + + + + + | Martir Hurtado | ECON | [address] | | | | | [facility] [place] | | | | | [address] | | + + + + + Care Team Providers + +------+ + | Care Beater Worker Helper Name | Role | Phone | + [...] | | + +--------+ +--------+ +---------+------+ | [facility] | [place] | [id number] | | [phone] | | PPO | | | | | [phone]-[id number] | 2 | | | | | HEALTH | | esent | | | | | | CARE | | | | | | | | PPO | | | | | | + +--------+ +--------+ +---------+------+ | [employer] | COMMER | [id number] | 12/05/19 | | | PPO | [...] | 1968 | [phone] | [place] [address] | | | joseline | | | 8 (Home) | | + +--------+ +--------+ + + Advance Directives + + + + + | Type | Date Recorded | Patient | Explanation | | | | Electric Motor Controls Assembler | | + + + + + | Power of | | | | | Rhinestone Setter | | | | + + + [...]
--- OUTSIDE RECORDS SUMMARY | ~2019-04-01 | XMS | Encounter Summary ---
Demographics + + + | Address | [address] | | | [place] [address] | + + + | Home Phone | | + + + | Preferred Language | Unknown | + + + | Marital Status | Single | + + + | Judaism Affiliation | 1041 | + + + | Race | Unknown | + + + | Ethnic Group | Unknown | + + + Author + + + | Author | [facility] | | | and Javierana | + + + | Organization | [facility] | | | and [...] [place] | | | | | [address] | | + + + + + Care Team Providers + +------+ + | Care Patient Registrar Name | Role | Phone | + [...] | | | [place], [place] | [address] | | | | | [address] | [phone] | | | | | [phone] | | | +--------+ + + + [...]
--- OUTSIDE RECORDS SUMMARY | ~2019-04-01 | XMS | Encounter Summary ---
Demographics + + + | Address | [address] | | | [place] [address] | + + + | Home Phone | | + + + | Preferred Language | Unknown | + + + | Marital Status | Single | + + + | Jewish Affiliation | 1041 | + + + | Race | Unknown | + + + | Ethnic Group | Unknown | + + + Author + + + | Author | [facility] | | | and Javierana | + + + | Organization | [facility] | | | and Javierana | + + + | Address | Unknown | + + + | Phone | Unavailable | + + + Support + + + + + | Name | Relationship | Address | Phone | + + + + + | Martir Hurtado | ECON | [address] | | | | | [place], [place] | | | | | [address] | | + + + + + Care Team Providers + +------+ + | Care International Sales Manager Name | Role | Phone | [...] | | | [place], [place] | [address] | Dx) | | | | [address] | [phone] | | | | | [phone] | | | +--------+---------+ + + + [...] Service: 10/19/2017 Provider: Fabrizio Pina Pt. Name/Age/: Parish Hurtado [...] note which was recorded by my assistant family teacher today. Electronically signed by: Fabrizio Pina DO 10/19/2017 13:13 CC: No Physician on file No ref. provider found Note: Part of this report was transcribed using voice recognition software. Every effort w as made to ensure accuracy. However, inadvertent computerized material planner errors may be pr esent. documented in this encounter Plan of Treatment Not on filedocumented as of this encounter Visit Diagnoses + + | Diagnosis | + + | Status post lateral meniscectomy of right knee - Primary Other postprocedural status | + + documented in this encounter
--- OUTSIDE RECORDS SUMMARY | ~2019-04-01 | XMS | Encounter Summary ---
Demographics + + + | Address | [address] | | | [place] [address] | + + + | Home Phone | | + + + | Preferred Language | Unknown | + + + | Marital Status | Single | + + + | Adventism Affiliation | 1041 | + + + | Race | Unknown | + + + | Ethnic Group | Unknown | + + + Author + + + | Author | [facility] | | | and Javierana | + + + | Organization | [facility] | | | and Javierana | + + + | Address | Unknown | + + + | Phone | Unavailable | + + + Support + + + + + | Name | Relationship | Address | Phone | + + + + + | Martir Hurtado | ECON | [address] | | | | | [place], [place] | | | | | [address] | | + + + + + Care Team Providers + +------+ + | Care Hydrographic Surveyor Name | Role | Phone | + [...] | | | [place], [place] | [address] | | | | | [address] | [phone] | | | | | [phone] | | | +--------+---------+ + + + [...] chart note which was recorded by my secretary administrative assistant today. Electronically signed by: Fabrizio Pina DO 09/21/2017 10:04 CC: No Physician on file No ref. provider found Note: Part of this report was transcribed using voice recognition software. Every effort w as made to ensure accuracy. However, inadvertent computerized machine try out setter errors may be pr esent. documented in this encounter Plan of Treatment Not on filedocumented as of this encounter Visit Diagnoses + + | Diagnosis | + + | Status post arthroscopy of right knee Other postprocedural status | + + documented in this encounter
== END 2019-04-01 23:19 | disposition home or self-care (01) ==
LOC: ED 20:16
DX: J11.1 Influenza due to unidentified influenza virus with other respiratory manifestations (principal)
CPT/HCPCS: 99282